=== PATIENT | female | born 1985 | race Caucasian/White ===

== ENCOUNTER → 2017-12-21 09:25 | Outpatient (CLI) | payer OTHER, SELFPAY ==
[2017-12-21 10:00] LABS: Add Manual Diff / Slide Review NO; Eosinophils Percent Auto 1.8 % (2-4); Hematocrit 41.3 % (36-46); Lymphocytes Percent Auto 32.2 % (25-40); Mean Corpuscular Hemoglobin 30.7 PG (26-34); Mean Corpuscular Volume 90.4 fL (80-100); Monocytes Percent Auto 12.8 % (3-14); Neutrophils Absolute Auto 2300 /uL (3000-5900); Neutrophils Percent Auto 52.2 % (50-75); Platelet Count 182 X10^3/uL (150-400); Red Blood Cell Count 4.57 X10^6/uL (4.0-5.2); Red Cell Distribution Width 13.5 % (11.6-14.8); White Blood Cell Count 4.4 X10^3/uL (4.5-11.0)
[2017-12-21 11:05] LABS: Alanine Aminotransferase 26 IU/L (9-52); Albumin 4.4 g/dL (3.5-5.0); Albumin Globulin Ratio 1.5 (1.0-2.8); Alkaline Phosphatase 49 U/L (38-126); Aspartate Aminotransferase 18 IU/L (14-36); Bilirubin Total 0.4 mg/dL (0.2-1.3); Calcium 9.2 mg/dL (8.4-10.2); Estimated Glomerular Filt Rate > 60.0 mL/min (>60); Globulin 2.9 g/dL (1.7-4.1); Glucose 82 mg/dL (70-100); HEMOLYSIS < 15 (0-50); Potassium 4.4 mmol/L (3.4-5.1); Sodium 141 mmol/L (137-145); Total Protein 7.3 g/dL (6.3-8.2)
[2017-12-21 11:56] LABS: HIV 1 and 2 Antibody NEGATIVE (NEGATIVE); Hep C Virus Ab w/Reflex Quant NEGATIVE s/c (NEGATIVE)
[2017-12-25 13:40] LABS: Hepatitis B Surf Ab Qualitativ Reactive (Nonreactive)
[2017-12-25 16:41] LABS: QuantiFERON TB Negative (Negative)
== END ==
PROVIDERS: Visit Provider Physician Assistant
DX: L40.0 Psoriasis vulgaris (principal)
CPT/HCPCS: 36415; 80053; 85025; 86480; 86703; 86706; 86803

== ENCOUNTER 2018-04-06 16:19 | Emergency (ER) | payer OTHER, SELFPAY ==
[2018-04-06 16:26] VITALS: BP 104/65; PULSE 62; RESP 16; TEMP 36.4; O2SAT 99; BMI 20.9
--- NOTE | 2018-04-06 16:31 | DI.RAD.S_ITS ---
PROCEDURE: XR FINGER LT MIN 2V INDICATIONS: hit left index finger with a hammer TECHNIQUE: AP hand, 2 views of the second finger(s) acquired. COMPARISON: None. FINDINGS: Bones: Small chip fracture involving volar aspect of second middle phalangeal base is seen with no significant displacement. No dislocation. No suspicious bony lesions. Soft tissues: No suspicious soft tissue calcifications. IMPRESSION: Chip fracture involving volar aspect of the second middle phalangeal base. Dictated by: López Quick M.D. on 04/06/2018 at 16:49 Approved by: López Quick M.D. on 04/06/2018 at 16:50
--- NOTE | 2018-04-06 18:30 | ED.UPPEXIN ---
HPI - Extremity Injury (Upper) <ALYSSA Rosario - Last Filed: 04/06/18 21:44> General Chief Complaint: Extremity Injury, Upper Stated Complaint: LEFT HAND INDEX FINGER INJURY Time Seen by Provider: 04/06/18 18:30 Source: patient Mode of arrival: ambulatory Limitations: no limitations History of Present Illness HPI narrative: 32-year-old female with history of rheumatoid arthritis that is a everyday smoker here for complaint of pain into her left index finger. She states that she was using a hammer earlier today and accidentally simple with a hammer hitting her left index finger. She reports increased pain with movement of the left index finger. She denies any other injuries or concerns. She also reports having slight swelling to the area. She does report that her immunizations up-to-date Related Data Home Medications Medication Instructions Recorded Confirmed iron polysac-iron heme polypep #0 07/10/16 [Duofer] Previous Rx's Medication Instructions Recorded hydrocodone-acetaminophen 1 tab PO Q4-6H PRN #6 tab 04/06/18 Allergies Allergy/AdvReac Type Severity Reaction Status Date / Time No Known Allergies Allergy Uncoded 04/06/18 16:30 Review of Systems <ALYSSA Rosario - Last Filed: 04/06/18 21:44> Constitutional Denies chills, Denies fever(s), Denies lethargy and Denies weakness Eyes Denies change in vision, Denies eye discharge, Denies irritation and Denies loss of vision ENT Ears, Nose, Mouth, and Throat: Denies change in voice, Denies neck pain and Denies sore throat Cardiovascular Denies chest pain, Denies irregular heart rhythm, Denies lightheadedness, Denies palpitations, Denies dyspnea, Denies dyspnea on exertion and Denies orthopnea Respiratory Denies cough, Denies dyspnea, Denies dyspnea on exertion and Denies wheezing Gastrointestinal Gastrointestinal: Denies abdominal pain, Denies change in bowel habits, Denies diarrhea, Denies nausea and Denies vomiting Genitourinary Denies hematuria, Denies flank pain, Denies urinary incontinence and Denies urinary urgency Musculoskeletal Denies neck pain Comments: Pain to left index finger Neurologic Denies loss of vision and Denies weakness Endocrine Denies palpitations Allergic/Immunologic Denies wheezing Exam <ALYSSA Rosario - Last Filed: 04/06/18 21:44> Initial Vital Signs Initial Vital Signs: Vital Signs Temperature 97.6 F 04/06/18 16:26 Pulse Rate 62 04/06/18 16:26 Respiratory Rate 16 04/06/18 16:26 Blood Pressure 104/65 04/06/18 16:26 Pulse Oximetry 99 04/06/18 16:26 Const General: cooperative and well developed Nutritional Appearance: well nourished Orientation: alert, awake, oriented x3 and not confused HENMT Face and sinus: sinus tenderness Mouth: oral mucosae normal and moist mucous membranes Eyes Conjunctivae: conjunctivae normal Sclera: sclerae normal Pupils: PERRL EOM: EOM intact bilaterally Resp Effort & Inspection: normal respiratory effort, able to speak in complete sentences, no respiratory distress and no use of accessory muscles Auscultation: clear to auscultation bilaterally, no rales, no rhonchi and no wheezes Cardio Rate: regular rate Rhythm: regular rhythm Heart Sounds: no click, no gallops, no murmurs and no rubs Pulses: normal peripheral pulses Neuro General: alert, oriented x3, gait normal and no focal motor deficits Speech: speech normal Extrem Other: Left index finger with slight swelling and ecchymosis to the PIP area. Distal sensation is intact. Distal range of motion is intact. Distal cap refill less than 2 sec. No open lesions <Douglas Floyd MD - Last Filed: 04/06/18 22:21> Initial Vital Signs Initial Vital Signs: Vital Signs Temperature 97.6 F 04/06/18 16:26 Pulse Rate 62 04/06/18 16:26 Respiratory Rate 16 04/06/18 16:26 Blood Pressure 104/65 04/06/18 16:26 Pulse Oximetry 99 04/06/18 16:26 Course <ALYSSA Rosario - Last Filed: 04/06/18 21:44> Orders Ordered: ED Orders 04/06/18 16:31 XR finger LT min 2V Stat Discontinued Medications Hydrocodone Bitart/Acetaminophen (Vicodin Prepack) 1 bottle MISC SEEINSTR ONE Stop: 04/06/18 18:49 Last Admin: 04/06/18 19:06 Dose: 1 bottle Vital Signs - 8 hr 04/06/18 16:26 Temperature 97.6 F Pulse Rate 62 Respiratory Rate 16 Blood Pressure 104/65 Pulse Oximetry 99 <Douglas Floyd MD - Last Filed: 04/06/18 22:21> Orders Ordered: ED Orders 04/06/18 16:31 XR finger LT min 2V Stat Discontinued Medications Hydrocodone Bitart/Acetaminophen (Vicodin Prepack) 1 bottle MISC SEEINSTR ONE Stop: 04/06/18 18:49 Last Admin: 04/06/18 19:06 Dose: 1 bottle Vital Signs - 8 hr 04/06/18 16:26 Temperature 97.6 F Pulse Rate 62 Respiratory Rate 16 Blood Pressure 104/65 Pulse Oximetry 99 [facility] - Extremity Injury (Upper) <ALYSSA Rosario - Last Filed: 04/06/18 21:44> Imaging Data Left finger : Radiologist's impression: Patient: Saundra Sena MR#: [id number] : 1985 Acct:[id number] Age/Sex: 32 / F Date of Service: 04/06/18 Loc: ED Accession Number: [id number] Procedure: XR finger LT min 2V Ordering Provider: Mau Up PROCEDURE: XR FINGER LT MIN 2V INDICATIONS: hit left index finger with a hammer TECHNIQUE: AP hand, 2 views of the second finger(s) acquired. COMPARISON: None. FINDINGS: Bones: Small chip fracture involving volar aspect of second middle phalangeal base is seen with no significant displacement. No dislocation. No suspicious bony lesions. Soft tissues: No suspicious soft tissue calcifications. IMPRESSION: Chip fracture involving volar aspect of the second middle phalangeal base. Dictated by: López Quick M.D. on 04/06/2018 at 16:49 Approved by: López Quick M.D. on 04/06/2018 at 16:50 [facility] Narrative Medical decision making narrative: X-ray of the left index finger was obtained and shows a small chip fracture to the base of the 2nd phalanx. She is placed in a adair tape splint. Dabr-bor-ggxavka ibuprofen as needed for any discomfort. Small amount of Patterson is prescribed for breakthrough pain. Ice and elevation help with any swelling. Rest finger. Follow up with primary care provider in 1 week. For any worsening symptoms return to the emergency room. Discharge Plan Departure Patient Disposition: Home Clinical Impression: Fracture of phalanx of left index finger Discharge Date/Time: 04/06/18 19:15 Interventions: ED Discharge Assessment Last Done: 04/06/18 19:14 Instructions: DI for Finger Fracture Activity Restrictions/Additional Instructions: X-ray of the left index finger was obtained and shows a small chip fracture to the base of the 2nd phalanx. You have been placed in a adair tape splint. Adair-tape finger daily until pain-free. Cots-aoz-dtgdukt ibuprofen as needed for any discomfort. Small amount of Patterson is prescribed for breakthrough pain no driving while on the Patterson. Ice and elevation help with any swelling. Rest finger. Follow up with primary care provider in 1 week. For any worsening symptoms return to the emergency room. Prescriptions: New hydrocodone-acetaminophen 5-325 mg tablet 1 tab PO Q4-6H PRN (Reason: pain) Qty: 6 RF: 0 No Action iron polysac-iron heme polypep [Duofer] 28 mg Tablet Qty: 0 RF: 0 Referrals: Preeti Mejia PA-C [Primary Care Provider] - <Douglas Floyd MD - Last Filed: 04/06/18 22:21> Cosign ED Attending Cosignature Attestation: I was present in the ER at the time of this patient's evaluation. I was available for verbal consultation or to see the patient directly if need be. I agree with the assessment and treatment plan.
[2018-04-06] MEDS: HYDROCODONE/ACET 5/325 PREPACK 1 BOTTLE MISC (19:06)
== END 2018-04-06 19:15 | disposition home or self-care (01) ==
PROVIDERS: Emergency Provider Nurse Practitioner Family; Family Provider Physician Assistant Medical; PCP Physician Assistant Medical
DX: S62.601A Fracture of unspecified phalanx of left index finger, initial encounter for closed fracture (principal); W27.8XXA Contact with other nonpowered hand tool, initial encounter
CPT/HCPCS: 29130; 73140; 99282; 99283

== ENCOUNTER → 2019-11-02 15:20 | Outpatient (CLI) | payer OTHER, SELFPAY ==
[2019-11-03 11:22] LABS: Influenza A - CEPHEID Flu A NEGATIVE (NEGATIVE); Influenza B - CEPHEID Flu B NEGATIVE (NEGATIVE)
[2019-11-05 01:10] LABS: COVID19 Sendout Not Detected (Not Detected)
== END ==
PROVIDERS: Family Provider Physician Assistant Medical; PCP Physician Assistant Medical; Visit Provider Physician Assistant
DX: J02.9 Acute pharyngitis, unspecified (principal); R68.89 Other general symptoms and signs; R05 Cough; R50.9 Fever, unspecified
CPT/HCPCS: 87070; 87502; 87635

== ENCOUNTER 2020-04-12 08:10 | Emergency (ER) | payer OTHER, SELFPAY ==
[2020-04-12 08:22] VITALS: BP 116/73; PULSE 78; RESP 16; TEMP 36.5; O2SAT 100; BMI 21.6
--- NOTE | 2020-04-12 08:36 | ED.SKABFB ---
HPI - Skin/Abscess/Foreign Bdy General Chief complaint: Skin/Abscess/Foreign Body Stated complaint: PAINFUL CYST AT TOP OF BUTT Time Seen by Provider: 04/12/20 08:23 Source: patient Mode of arrival: Ambulatory Limitations: no limitations History of Present Illness HPI narrative: The patient has experienced a cystic structure present on her sacral area for months. The cyst has seemed to increase and decrease in size. Over the last 2 days the cyst has involved once again, and not going down this time. She has tenderness. She has no drainage from the site. She has no fever chills. She has no prior history of assessment to the areas. She has had no trauma. She has no chronic skin problems. Related Data Previous Rx's Medication Instructions Recorded hydrocodone-acetaminophen [Hosmer] 1 tab PO Q4-6H PRN #14 tab 04/12/20 Allergies Allergy/AdvReac Type Severity Reaction Status Date / Time No Known Allergies Allergy Uncoded 04/12/20 08:29 Review of Systems Constitutional Constitutional: Denies body ache(s), Denies chills and Denies fever(s) Gastrointestinal Gastrointestinal: Denies abdominal pain, Denies change in bowel habits, Denies diarrhea, Denies nausea and Denies vomiting Genitourinary Genitourinary: Denies dysuria Genitourinary: Denies dysuria Musculoskeletal Comments: Pain at the sacrum as noted above. Patient History Medical History (Updated 04/12/20 @ 17:03 by Douglas Floyd MD) Rheumatoid arthritis (Chronic 04/11/16) Surgical History History of third molar tooth extraction History of tonsillectomy Status post exploratory laparotomy Status post laparoscopic supracervical hysterectomy (07/10/16) Status post myringotomy with insertion of tube Social History Smoking Status: Current every day smoker Smoking Status: Current every day smoker tobacco type: cigarettes alcohol intake frequency: a few times a week Substance Use Type: does not use Exam Initial Vital Signs Initial Vital Signs: Vital Signs Temperature 97.7 F 04/12/20 08:22 Pulse Rate 78 04/12/20 08:22 Respiratory Rate 16 04/12/20 08:22 Blood Pressure 116/73 04/12/20 08:22 Pulse Oximetry 100 04/12/20 08:22 Back/Spine/Pelvis Other: Normal. Skin Other: Pilonidal abscess over her sacrum. There is about a 2 cm area of erythema, and induration. There is a 1 cm central area of fluctuance. There is no obvious tractor drainage from the site. Neuro General: patient alert, patient oriented x3, gait normal and no focal motor deficits Speech: speech normal Psych Appearance: well kempt Mental Status: mental status grossly normal Attitude: cooperative Thought Content: normal Procedures Abscess I/D I&D #1: Site: other (Sacrum) Local Anesthetic: lidocaine 1% and with bicarb Amount of anesthesia used (mL): 3 Technique: incised with #11 blade Amount of fluid expressed (mL): 2 Irrigation: Yes Packing used?: iodoform Complications: pain Course Course Course Narrative: Panel abscess was I and eat. Package was placed. 4x4s were paced for her 2 pack inside her pants. Although she experience pain with the and incision, she tolerated procedure quite well. There are no additional complications. She was prescribed Hosmer for pain. She is asked to follow-up with her doctor in 2 days to recheck the wound. She is asked to follow up with surgery, either here or through consultation from her PCM. Orders Ordered: Discontinued Medications Lidocaine/Sodium Bicarbonate (Buffered Lidocaine 10 Ml Syr) 5 ml INJ NOW ONE Stop: 04/12/20 09:16 Last Admin: 04/12/20 09:03 Dose: 5 ml Documented by: AMARIS Vital Signs Vital signs: Vital Signs - 8 hr 04/12/20 09:51 Pulse Rate 78 Respiratory Rate 14 Blood Pressure 121/82 Pulse Oximetry 99 Discharge Plan Departure Patient Disposition: Home Clinical Impression: Cyst, pilonidal, with abscess Discharge Date/Time: 04/12/20 09:52 Instructions: Pilonidal Cyst Activity Restrictions/Additional Instructions: Apply warm soaks or do Sitz baths 2-3 times daily until you feel the wound is healing well. Change bandages as needed. Follow-up with your doctor in about 2 days for wound check. I would recommend follow-up with surgery for recheck in about 2 weeks. I will give you contact information for Dr. Brewer, a local surgeon here in [place]. Take Tylenol or Advil as needed for pain. Hosmer every 4 hours as needed for added pain control. Return the ER if symptoms escalate. Prescriptions: New hydrocodone-acetaminophen [Hosmer] 5-325 mg tablet 1 tab PO Q4-6H PRN (Reason: pain) Qty: 14 RF: 0 Referrals: Cuate Brewer MD [Physician] - Douglas Floyd MD [Emergency Provider] - Bonny Chew PA-C [Primary Care Provider] -
[2020-04-12] MEDS: LIDO 1%/SOD BICARB 8.4% (10ML) 10 ML SYRINGE 5 ML INJ (09:03)
[2020-04-12 09:51] VITALS: BP 121/82; PULSE 78; RESP 14; O2SAT 99
== END 2020-04-12 09:52 | disposition home or self-care (01) ==
PROVIDERS: Emergency Provider Emergency Medicine; Family Provider Physician Assistant Medical; PCP Physician Assistant Medical
DX: L05.01 Pilonidal cyst with abscess (principal)
CPT/HCPCS: 10060; 99283

== ENCOUNTER → 2020-11-03 16:07 | Outpatient (CLI) | payer OTHER, SELFPAY ==
--- NOTE | 2020-11-03 | DI.MRI.S_ITS ---
PROCEDURE: MR ANKLE RT WO CON INDICATIONS: pain in right foot TECHNIQUE: Noncontrast sagittal T1 spin echo and T2 fast spin echo with fat saturation, axial proton density fast spin echo and T2 fast spin echo with fat saturation, coronal T1 spin echo and T2 fast spin echo with fat saturation through the ankle/hindfoot. COMPARISON: None. FINDINGS: Image quality: Excellent. Bones and joints: There is mild marrow edema involving medial periphery of medial malleolus and lateral periphery of lateral malleolus without discrete fracture line. No hindfoot coalitions. No osteochondral injuries of the talar dome. No pathologic joint effusions. Medial structures: The posterior tibialis, flexor digitorum longus, and flexor hallucis longus tendons are intact. Small amount of fluid distending posterior tibialis tendon sheath is seen suggestive of low-grade tenosynovitis at the level of anterior talus. The posterior tibial neurovascular bundle appears normal within the tarsal tunnel, without extrinsic mass effect. The deep layer (anterior and posterior tibiotalar ligaments) and superficial layer (tibionavicular, tibiospring, and tibiocalcaneal ligaments) of the deltoid ligament appear normal. The spring ligament components (superomedial calcaneonavicular, medioplantar oblique calcaneonavicular, and inferoplantar longitudinal ligaments) are intact. Lateral structures: The anterior talofibular ligament is intact. Posterior talofibular ligament and calcaneofibular ligament are slightly thickened with heterogeneous intrasubstance T2 hyperintense signal suggestive of low-grade ligament sprain/partial-thickness tear. More superiorly, the anterior and posterior tibiofibular ligaments appear intact, as is the intermalleolar ligament. The tibiofibular syndesmosis is normal in width at 2 mm or less. The peroneus longus and brevis tendons are also thickened with intrasubstance T2 hyperintense signal at the level of lateral calcaneus. Adjacent bony peroneal tubercle and retrotrochlear prominence are normal in size. The sinus tarsi demonstrates normal fatty signal, without edema, fibrosis, or cyst formation. Visualized sinus tarsi components (cervical ligament, interosseous talocalcaneal ligament, roots of the inferior extensor retinaculum) appear normal. The calcaneonavicular and calcaneocuboid components of the bifurcate ligament appear intact. The dorsal calcaneocuboid ligament appears intact. Anterior structures: The tibialis anterior, extensor hallucis longus, and extensor digitorum longus tendons appear intact. The dorsal talonavicular ligament appears intact. Posterior and plantar structures: Achilles tendon is intact. Medial and lateral bands of the plantar fascia are of normal thickness. No abductor digiti quinti muscle atrophy to suggest Jaquez neuropathy. IMPRESSION: 1. Suggestion of mild bony contusion involving medial and lateral malleoli with mild amount of marrow edema. No discrete fracture line. No significant joint effusion. No osteochondral lesion of talar dome. 2. Suggestion of low-grade tenosynovitis involving posterior tibialis tendon. 3. Tendinosis and low-grade intrasubstance partial-thickness tear involving peroneus tendons at the level of lateral calcaneus. 4. Low-grade sprain/partial-thickness tear involving posterior talofibular ligament and calcaneofibular ligament. Dictated by: López Quick M.D. on 11/03/2020 at 16:49 Approved by: López Quick M.D. on 11/03/2020 at 17:16
== END ==
PROVIDERS: Family Provider Physician Assistant Medical; PCP Physician Assistant Medical; Referring Provider Podiatrist; Visit Provider Podiatrist
DX: R22.9 Localized swelling, mass and lump, unspecified (principal); R26.2 Difficulty in walking, not elsewhere classified; M79.671 Pain in right foot
CPT/HCPCS: 73721

== ENCOUNTER → 2020-11-26 06:38 | Outpatient (CLI) | payer OTHER, SELFPAY ==
--- NOTE | 2020-11-26 | DI.MRI.S_ITS ---
PROCEDURE: MR LUMBAR SPINE WO/W CON INDICATIONS: Intervertebral disc disorders with radiculopathy, TECHNIQUE: Noncontrast sagittal T1 spin echo and T2 fast spin echo, sagittal STIR, axial T1 and T2 fast spin echo through the lumbar spine. In cases with scoliosis, additional coronal T2 fast spin echo may be performed. After the administration of contrast, sagittal and axial T1 spin echo with fat saturation through the lumbar spine. COMPARISON: CR, L-SPINE 2-3 VIEWS, 07/01/2013, 19:53. FINDINGS: Image quality: Excellent. Alignment and curvature: There is normal bony alignment. Bones: Postsurgical changes compatible with prior L5-S1 bilateral laminotomies. Marrow is of normal overall signal. No acute vertebral body compression fractures. No suspicious marrow enhancement. Spinal cord: Conus medullaris terminates at the L1 level. Visualized spinal cord demonstrates normal signal, without suspicious enhancement. Paraspinous soft tissues: No paravertebral masses or abnormal enhancement. T12-L1: Normal appearance. L1-L2: Normal appearance. L2-L3: Normal appearance. L3-L4: Normal appearance. L4-L5: Slight loss of disc signal. Minimal, diffuse disc bulge. No central stenosis. No neural foraminal narrowing. No neural compression. L5-S1: Loss of disc signal. Mild, diffuse disc bulge. Moderate-sized central disc protrusion. Mild narrowing of the central canal. Moderate bilateral neural foraminal narrowing. No neural compression. IMPRESSION: 1. Postsurgical change compatible with prior L5-S1 bilateral laminotomy. 2. L4-L5 and L5-S1 degenerative disc disease. 3. Mild L5-S1 central canal narrowing. 4. Moderate bilateral L4-L5 neural foraminal narrowing. 5. No neural compression. 6. No suspicious postcontrast enhancement. Dictated by: Radha Pratt MD, PhD on 11/26/2020 at 8:20 Approved by: Radha Pratt MD, PhD on 11/26/2020 at 8:24
== END ==
PROVIDERS: Family Provider Physician Assistant Medical; PCP Physician Assistant Medical; Referring Provider Orthopaedic Surgery; Visit Provider Orthopaedic Surgery
DX: M51.16 Intervertebral disc disorders with radiculopathy, lumbar region (principal); M51.17 Intervertebral disc disorders with radiculopathy, lumbosacral region; M48.061 Spinal stenosis, lumbar region without neurogenic claudication; M48.07 Spinal stenosis, lumbosacral region
CPT/HCPCS: 72158

== ENCOUNTER 2021-01-11 09:50 | Emergency (ER) | payer OTHER, SELFPAY ==
[2021-01-11] VITALS (11 sets, daily range): BP systolic 103–128; BP diastolic 58–74; PULSE 65–90; RESP 18; TEMP 36.6; O2SAT 98–100; BMI 19.3
--- NOTE | 2021-01-11 11:08 | ED_ITS ---
HPI - Back Pain/Injury General Chief Complaint: Back Pain/Injury Stated Complaint: RUPTURED DISC IN BACK Time Seen by Provider: 01/11/21 11:01 Source: patient Limitations: no limitations History of Present Illness HPI Narrative: This is a 35-year-old female who comes in with known herniated disc at the L4-L5 region. MRI in October which I was able to review here in the department. She has had a prior L5-S1 bilateral laminotomy and hysterectomy. Patient states she follows with [facility]. She is scheduled for back injections in the next week but states her symptoms have just been worsening. Her main goal here today is symptom management. Patient states her symptoms are consistent with her prior flares. She states she did have a flare couple weeks ago had pain medication and steroids which seemed to be quite helpful. And that she finished her steroids about 2-3 weeks ago. Patient was feeling significantly better and states she has been more active. She did not know any significant activity that seemed to suddenly worsen her symptoms but she has noted a slight increase in discomfort over the last several days. Patient states pain does radiate down both legs. She gets numbness and tingling down her legs. She denies any weakness but does have significant worsening of pain with movement of her lower extremities particularly extension. Patient denies any fevers or chills. No chest pain or shortness of breath. No loss of bowel or bladder control. Known new GI or urinary symptoms. No nausea or vomiting. She is on medications for rheumatoid arthritis, mood and ultram daily for chronic pain. Patient denies any allergies to medications. 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 Related Data Previous Rx's Medication Instructions Recorded hydrocodone-acetaminophen [[facility]] 1 tab PO Q4-6H PRN #14 tab 04/12/20 cyclobenzaprine 10 mg PO TID PRN #20 tab 01/11/21 oxycodone-acetaminophen [Percocet] 1 tab PO Q6H PRN #5 tab 01/11/21 prednisone 40 mg PO DAILY #8 tab 01/11/21 Allergies Allergy/AdvReac Type Severity Reaction Status Date / Time No Known Allergies Allergy Uncoded 04/12/20 08:29 Review of Systems Review of Systems ROS Unobtainable: All systems reviewed & are unremarkable except as noted in HPI and below Patient History Medical History (Updated 01/11/21 @ 11:30 by Emili Sheffield DO) Rheumatoid arthritis (04/11/16) Surgical History History of third molar tooth extraction History of tonsillectomy Status post exploratory laparotomy Status post laparoscopic supracervical hysterectomy (07/10/16) Status post myringotomy with insertion of tube Social History Smoking Status: Current every day smoker Smoking Status: Current every day smoker tobacco type: cigarettes alcohol intake frequency: a few times a week Substance Use Type: does not use Exam Narrative Exam Narrative: GENERAL: Alert and oriented x three, well-nourished female in moderate distress. HEENT: Head normocephalic, atraumatic, EOMI, pupils reactive, face symmetric, moist mucous membranes NECK: Supple, full range of motion CARDIOVASCULAR: Regular rate and rhythm without murmurs, rubs or gallops. RESPIRATORY: Breath sounds equal bilaterally, no wheezes rales or rhonchi. ABDOMEN: Soft, nontender. Normoactive bowel sounds all 4 quadrants. No guarding or rebound, rigidity, no mass : No CVA tenderness BACK: No cervical, thoracic or lumbar vertebral point tenderness. Patient has decreased range of motion. Patient's gait is [antalgic/normal]. Rectal exam is deferred. No saddle anesthesia. Muscle strength is 5/5 in lower extr emities, Sensation is intact in the lower extremities, ca; refill less than 2 seconds bilaterally. EXTREMITIES: Normal range of motion, no clubbing or edema. Neurovascularly intact NEUROLOGICAL: Cranial nerves II through XII grossly intact. Moving all extremities SKIN: Warm, dry, no petechiae, no rashes or lesions. Initial Vital Signs Initial Vital Signs: Vital Signs Temperature 97.8 F 01/11/21 10:00 Pulse Rate 90 01/11/21 10:00 Respiratory Rate 18 01/11/21 10:00 Blood Pressure 128/74 01/11/21 10:00 Pulse Oximetry 100 01/11/21 10:00 Course Orders Ordered: Discontinued Medications Ketorolac Tromethamine (Ketorolac 30 Mg/Ml Vial) 60 mg IM NOW ONE Stop: 01/11/21 11:20 Last Admin: 01/11/21 11:51 Dose: 60 mg Documented by: ROMEL Oxycodone/Acetaminophen (Oxycodone/Acetaminophen 5/325 Tablet) 1 tab PO NOW ONE Stop: 01/11/21 12:27 Last Admin: 01/11/21 12:31 Dose: 1 tab Documented by: ROMEL Prednisone (Prednisone 20 Mg Tablet) 60 mg PO NOW ONE Stop: 01/11/21 11:20 Last Admin: 01/11/21 11:29 Dose: 60 mg Documented by: ROMEL Reevaluation(s) Reevaluation #1: Patient is feeling much more comfortable on recheck pending her 1 Percocet p.o. here as she is waiting for her ride. She states she has a few tablets left of narcotic pain medication and would like to refill the prednisone. Time: 12:32 Vital Signs Vital signs: Vital Signs - 8 hr 01/11/21 11:00 01/11/21 11:01 01/11/21 11:30 Pulse Rate 83 88 74 Blood Pressure 122/74 Pulse Oximetry 99 99 98 01/11/21 11:31 01/11/21 12:00 01/11/21 12:30 Pulse Rate 74 75 69 Blood Pressure 103/67 108/72 Pulse Oximetry 98 98 98 01/11/21 12:32 01/11/21 13:00 Pulse Rate 76 65 Blood Pressure 107/58 L 110/69 Pulse Oximetry 100 100 MDM - Back Pain/Injury Imaging Data 10/2020 MRI: Radiologist's Impression: [address] [id number] Resonance ReportSigned Patient: Saundra Sena [facility]#: [id number]: 1985Acct:[id number]/Sex: 35 / FDate of Service: 11/26/20Loc: MRIAccession Number: [id number] Procedure: MR lumbar spine wo/w con Ordering Provider: Qasim Alexander MD PROCEDURE: MR LUMBAR SPINE WO/W CON INDICATIONS: Intervertebral disc disorders with radiculopathy, TECHNIQUE: Noncontrast sagittal T1 spin echo and T2 fast spin echo, sagittal STIR, axial T1 and T2 fast spin echo through the lumbar spine. In cases with scoliosis, additional coronal T2 fast spin echo may be performed. After the administration of contrast, sagittal and axial T1 spin echo with fat saturation through the lumbar spine. COMPARISON: CR, L-SPINE 2-3 VIEWS, 07/01/2013, 19:53. FINDINGS: Image quality: Excellent. Alignment and curvature: There is normal bony alignment. Bones: Postsurgical changes compatible with prior L5-S1 bilateral laminotomies. Marrow is of normal overall signal. No acute vertebral body compression fractures. No suspicious marrow enhancement. Spinal cord: Conus medullaris terminates at the L1 level. Visualized spinal cord demonstrates normal signal, without suspicious enhancement. Paraspinous soft tissues: No paravertebral masses or abnormal enhancement. T12-L1: Normal appearance. L1-L2: Normal appearance. L2-L3: Normal appearance. L3-L4: Normal appearance. L4-L5: Slight loss of disc signal. Minimal, diffuse disc bulge. No central stenosis. No neural foraminal narrowing. No neural compression. L5-S1: Loss of disc signal. Mild, diffuse disc bulge. Moderate-sized central disc protrusion. Mild narrowing of the central canal. Moderate bilateral neural foraminal narrowing. No neural compression. IMPRESSION: 1. Postsurgical change compatible with prior L5-S1 bilateral laminotomy. 2. L4-L5 and L5-S1 degenerative disc disease. 3. Mild L5-S1 central canal narrowing. 4. Moderate bilateral L4-L5 neural foraminal narrowing. 5. No neural compression. 6. No suspicious postcontrast enhancement. Dictated by: Radha Pratt MD, PhD on 11/26/2020 at 8:20 Approved by: Radha Pratt MD, PhD on 11/26/2020 at 8:24 [facility] Narrative Medical decision making narrative: Patient comes in with acute on chronic low back pain in similar pattern is the past. No acute new neurologic changes. Patient does not have any red flag symptoms today. She is set up for follow-up in the next week for injections and is post laminotomy remotely. Patient did have an MRI in October, 2 months ago which shows post surgical changes, some degenerative disc disease, mild L5-S1 central canal with moderate bilateral L4- L5 neural foraminal narrowing. There was no neural compression. Patient's main goal today is pain control until she can follow up for injections. She states steroids or typically helpful for her. Her most recent ER visit was at [facility] attempting to obtain records. Patient received Toradol and steroids here in the department with improvement. Was given 1 dose of oral Percocet in the department. [place] PWP was reviewed she had 42 oxycodone in a pool/09/18/2020 as well as 14 tablets in 11/10/2020 but did not have any other priors for until August and July which were both tramadol. Discharge Plan Departure Patient Disposition: Home Clinical Impression: Low back pain Qualifiers: Back pain laterality: bilateral Sciatica presence: with sciatica Sciatica laterality: bilateral sciatica Instructions: DI for Low Back Pain Activity Restrictions/Additional Instructions: Follow up with your spinal specialist at your appointment. I hope your injections are helpful. Take steroids until gone. You may use muscle relaxers as needed. You may take ibuprofen up to 800 mg every 8 hours as needed for pain and/or Tylenol up to a 1000 mg as needed for pain. If this is an adequate you may substitute Percocet for Tylenol. These both have acetaminophen in them so your maximum dose of acetaminophen in 24 hours is 3000 mg. This medication can make you sleepy do not drive, perform hazardous activities or make any major decisions while taking it. This medication will make you constipated please take a stool softener once to twice daily until stools are soft and regular. Prescription to [facility] in [place]. You may continue your home medications as prescribed. Please return for fevers, rapidly worsening symptoms, loss of bowel or bladder control, inability urinate, new numbness, weakness or inability to lift or move your leg, lightheadedness or passing out, new chest pain or shortness of breath or other new or concerning symptoms. Prescriptions: New cyclobenzaprine 10 mg tablet 10 mg PO TID PRN (Reason: muscle spasm) Qty: 20 RF: 0 prednisone 20 mg tablet 40 mg PO DAILY Qty: 8 RF: 0 oxycodone-acetaminophen [Percocet] 5-325 mg tablet 1 tab PO Q6H PRN (Reason: pain) Qty: 5 RF: 0 No Action hydrocodone-acetaminophen [[facility]] 5-325 mg tablet 1 tab PO Q4-6H PRN (Reason: pain) Qty: 14 RF: 0 Referrals: Bonny Chew PA-C [Primary Care Provider] -
[2021-01-11] MEDS: predniSONE 20 MG TABLET 60 MG PO (11:29)
[2021-01-11] MEDS: KETOROLAC 30 MG/ML VIAL 60 MG IM (11:51)
[2021-01-11] MEDS: OXYCODONE/ACETAMINOPHEN 5/325 TABLET 1 TAB PO (12:31)
== END 2021-01-11 13:19 | disposition home or self-care (01) ==
PROVIDERS: Emergency Provider Emergency Medicine; Family Provider Physician Assistant Medical; PCP Physician Assistant Medical
DX: M54.42 Lumbago with sciatica, left side (principal); M54.41 Lumbago with sciatica, right side
CPT/HCPCS: 96372; 99283; J1885

== ENCOUNTER 2021-06-23 02:51 | Emergency (ER) | payer OTHER, SELFPAY ==
[2021-06-23 02:50] VITALS: BP 134/95; PULSE 88; RESP 18; TEMP 36.8; O2SAT 99; BMI 17.9
[2021-06-23] MEDS: OXYCODONE/ACETAMINOPHEN 5/325 TABLET 2 TAB PO (03:19)
[2021-06-23] MEDS: diazePAM 5 MG TABLET PO (03:19)
[2021-06-23] MEDS: KETOROLAC 30 MG/ML VIAL IM (03:20)
--- NOTE | 2021-06-23 03:40 | ED.EXTPRO ---
HPI - Extremity Problem General Chief complaint: Extremity Problem,Nontraumatic Stated complaint: Rt leg pain Time Seen by Provider: 06/23/21 03:03 Source: patient and EMS Mode of arrival: Ambulatory Limitations: no limitations and language barrier History of Present Illness HPI Narrative: Patient is a 35-year-old female with history of chronic back pain and rheumatoid arthritis presenting today with a rate full leg pain. She cannot find a comfortable position. She has a known herniated disc between L5 and S1 she has had multiple procedures on that area. She had a cortisone injection about 3 weeks ago. She has had no changes in bowel or bladder habits. No fever or chills. She is currently camping with her children she thinks maybe something happened while she was packing car her. She is feels an ache in her right leg and can not find a comfortable position. She actually has no worsening back pain at this time. She takes Percocet regularly for ongoing back pain. No prior history of sciatic problems Related Data Previous Rx's Medication Instructions Recorded hydrocodone 5 mg-acetaminophen 325 1 tab PO Q4-6H PRN #14 tab 04/12/20 mg tablet ([place]) cyclobenzaprine 10 mg tablet 10 mg PO TID PRN #20 tab 01/11/21 oxycodone-acetaminophen 5 mg-325 1 tab PO Q6H PRN #5 tab 01/11/21 mg tablet (Percocet) prednisone 20 mg tablet 40 mg PO DAILY #8 tab 01/11/21 methocarbamol 750 mg tablet 750 mg PO Q8H PRN #20 tab 06/23/21 prednisone 20 mg tablet 40 mg PO DAILY #10 tab 06/23/21 Allergies Allergy/AdvReac Type Severity Reaction Status Date / Time No Known Allergies Allergy Uncoded 04/12/20 08:29 Review of Systems Review of Systems Narrative: GENERAL: Denies chills, fatigue, malaise, fever, sweats, travel HEENT: Denies sinus pain, ear pain, sore throat, difficulty swallowing, neck pain RESPIRATORY: Denies dyspnea, cough, wheezing, hemoptysis, sputum. CARDIOVASCULAR: Denies chest pain, palpitations, orthopnea, edema GASTROINTESTINAL: Denies nausea, vomiting, abdominal pain, diarrhea, constipation, melena. : Denies dysuria, frequency, incontinence, hematuria, urinary retention, flank pain. MUSCULOSKELETAL: Chronic back pain him see HPI SKIN: No rash, no erythema, no pruritus NEUROLOGIC: Denies weakness, dizziness, headache, numbness, change in speech, confusion PSYCHIATRIC: No concerning psychosocial issues. 12 point review of systems is negative except for those stated above and HPI Patient History Medical History (Updated 06/23/21 @ 03:46 by Katharina Chaparro DO) Rheumatoid arthritis (04/11/16) Surgical History History of third molar tooth extraction History of tonsillectomy Status post exploratory laparotomy Status post laparoscopic supracervical hysterectomy (07/10/16) Status post myringotomy with insertion of tube Social History Smoking Status: Current every day smoker Smoking Status: Current every day smoker tobacco type: cigarettes alcohol intake frequency: a few times a week Substance Use Type: does not use Exam Initial Vital Signs Initial Vital Signs: Vital Signs Temperature 98.2 F 06/23/21 02:50 Pulse Rate 88 06/23/21 02:50 Respiratory Rate 18 06/23/21 02:50 Blood Pressure 134/95 H 06/23/21 02:50 Pulse Oximetry 99 06/23/21 02:50 GENERAL: Alert 35-year-old female HEENT: Head atraumatic,EOMI, pupils reactive, face symmetric, moist mucous membranes CARDIOVASCULAR: Regular rate and rhythm without murmurs, rubs or gallops. RESPIRATORY: Breath sounds equal bilaterally, no wheezes rales or rhonchi. BACK: No vertebral tenderness EXTREMITIES: Normal range of motion, no clubbing or edema. Neurovascularly intact. Continuously moving right leg to try and find comfortable position. Pain is reproduced by palpating in the right buttock region. NEUROLOGICAL: Alert and oriented x4. SKIN: Warm, dry, no laceration, no petechiae, no rashes or lesions. Course Orders Ordered: Hydromorphone HCl (Hydromorphone 2 Mg Inj) 1 mg SUBCUT Q4H PRN PRN Reason: Pain, Severe (7-10) Last Admin: 06/23/21 04:02 Dose: 1 mg Documented by: GERALDINE Discontinued Medications Diazepam (Diazepam 5 Mg Tablet) 5 mg PO NOW ONE Stop: 06/23/21 03:13 Last Admin: 06/23/21 03:19 Dose: 5 mg Documented by: GERALDINE Ketorolac Tromethamine (Ketorolac 30 Mg/Ml Vial) 30 mg IM NOW ONE Stop: 06/23/21 03:13 Last Admin: 06/23/21 03:20 Dose: 30 mg Documented by: GERALDINE Oxycodone/Acetaminophen (Oxycodone/Acetaminophen 5/325 Tablet) 2 tab PO NOW ONE Stop: 06/23/21 03:13 Last Admin: 06/23/21 03:19 Dose: 2 tab Documented by: GERALDINE Prednisone (Prednisone 20 Mg Tablet) 40 mg PO NOW ONE Stop: 06/23/21 04:34 Last Admin: 06/23/21 04:39 Dose: 40 mg Documented by: JAVY Vital Signs Vital signs: Vital Signs - 8 hr 06/23/21 02:50 Temperature 98.2 F Pulse Rate 88 Respiratory Rate 18 Blood Pressure 134/95 H Pulse Oximetry 99 MDM - Extremity (Nontraumatic) MDM Narrative Medical decision making narrative: Patient is moving legs all around. Difficult to find comfortable position. Chronic opiate user she is given Percocet and dilaudid in the emergency department. She is given her 1st dose of prednisone as well. Pain has come down significantly but not completely gone yet. She has is no signs of cord compression, or other red flag signs. She has chronic ongoing back pain this is probably related. He is also having loss of stress at home going through separation with 2 small children. Discharge Plan Departure Patient Disposition: Home Clinical Impression: Acute back pain with sciatica Activity Restrictions/Additional Instructions: *You have been diagnosed with sciatic pain *What to do: Sciatic pain is this may be related to your no ongoing back issues. Recommend stretching and heating pad. *Continue to take medications as directed Continue Percocet as previously prescribed Methocarbamol 1500 mg every 8 hours if needed for muscle spasm Prednisone 40 mg once a day for 5 days *Follow up with your primary care provider in 2-3 days *Return to ER if you should have loss of urine or bowel, increasing pain, increasing right leg weakness, fever or any new, worsening or concerning symptoms Prescriptions: New prednisone 20 mg tablet 40 mg PO DAILY Qty: 10 0RF methocarbamol 750 mg tablet 750 mg PO Q8H PRN (Reason: muscle spasm) Qty: 20 0RF No Action cyclobenzaprine 10 mg tablet 10 mg PO TID PRN (Reason: muscle spasm) Qty: 20 0RF prednisone 20 mg tablet 40 mg PO DAILY Qty: 8 0RF oxycodone-acetaminophen [Percocet] 5-325 mg tablet 1 tab PO Q6H PRN (Reason: pain) Qty: 5 0RF hydrocodone-acetaminophen [[place]] 5-325 mg tablet 1 tab PO Q4-6H PRN (Reason: pain) Qty: 14 0RF Referrals: Bonny Chew PA-C [Primary Care Provider] -
[2021-06-23] MEDS: HYDROMORPHONE 2 MG INJ 1 MG SUBCUT (04:02)
[2021-06-23] MEDS: predniSONE 20 MG TABLET 40 MG PO (04:39)
[2021-06-23 04:45] VITALS: BP 148/83; PULSE 82; RESP 18; O2SAT 97
== END 2021-06-23 04:48 | disposition home or self-care (01) ==
PROVIDERS: Emergency Provider Emergency Medicine; Family Provider Physician Assistant Medical; PCP Physician Assistant Medical
DX: M54.9 Dorsalgia, unspecified (principal); M54.31 Sciatica, right side; G89.29 Other chronic pain; F17.210 Nicotine dependence, cigarettes, uncomplicated; Z79.891 Long term (current) use of opiate analgesic
CPT/HCPCS: 96372; 99283; 99284; J1170; J1885

== ENCOUNTER 2022-05-23 23:17 | Emergency (ER) | payer OTHER, SELFPAY ==
[2022-05-23 23:30] VITALS: BP 119/68; PULSE 103; RESP 18; TEMP 36.2; O2SAT 98; BMI 19.3
--- NOTE | 2022-05-23 23:45 | ED.SKABFB ---
HPI - Skin/Abscess/Foreign Bdy General Chief complaint: Wound/Laceration Stated complaint: had a lift down surgery site torn open Time Seen by Provider: 05/23/22 23:29 History of Present Illness HPI narrative: Patient here for evaluation of postop wound dehiscence. Patient had bilateral breast lift with implants April 17, 2022 in [place]. She did have follow-up appointment with the same surgeon while she was there. Two weeks postop she was able to ?snip ?sutures that she was instructed to do. They are subcutaneous absorbable stitches she states. Shortly after doing that she started having dehiscence/skin ulcerations on the right breast at the 6 o'clock position on the breast and then at the 4 o'clock position at the areolar border. On the left breast at the 6 o'clock position also ulceration that is size of a quarter/coin. At the 10 o'clock position at the areola border there is small ulceration as well. She did see urgent Care as well as [facility]. Since then. She was started on Augmentin 2 days ago. She did have a surgeon see her at that hospital and recommended antibiotics topical antibiotics as well as follow up in the General surgery Clinic. Related Data Previous Rx's Medication Instructions Recorded hydrocodone 5 mg-acetaminophen 325 1 tab PO Q4-6H PRN pain #14 tabs 04/12/20 mg tablet (Ragland) cyclobenzaprine 10 mg tablet 10 mg PO TID PRN muscle spasm #20 01/11/21 tabs oxycodone-acetaminophen 5 mg-325 1 tab PO Q6H PRN pain #5 tabs 01/11/21 mg tablet (Percocet) prednisone 20 mg tablet 40 mg PO DAILY #8 tabs 01/11/21 methocarbamol 750 mg tablet 750 mg PO Q8H PRN muscle spasm #20 06/23/21 tabs prednisone 20 mg tablet 40 mg PO DAILY #10 tabs 06/23/21 doxycycline monohydrate 100 mg 100 mg PO BID #20 caps 05/24/22 capsule Allergies Allergy/AdvReac Type Severity Reaction Status Date / Time No Known Allergies Allergy Uncoded 04/12/20 08:29 Review of Systems Review of Systems Narrative: GENERAL: Denies chills, fatigue, malaise, fever, sweats. HEENT: Denies sinus pain, ear pain, sore throat RESPIRATORY: Denies dyspnea, cough CARDIOVASCULAR: Denies chest pain, palpitations GASTROINTESTINAL: Denies nausea, vomiting, abdominal pain : Denies dysuria, frequency, hematuria MUSCULOSKELETAL: denies muscle or bony pain SKIN: Positive for skin wound/dehiscence NEUROLOGIC: Denies weakness, numbness ROS Unobtainable: All systems reviewed & are unremarkable except as noted in HPI and below Patient History Medical History (Updated 05/24/22 @ 00:44 by Nahid Ken MD) Rheumatoid arthritis (04/11/16) Surgical History History of third molar tooth extraction History of tonsillectomy Status post exploratory laparotomy Status post laparoscopic supracervical hysterectomy (07/10/16) Status post myringotomy with insertion of tube Social History Smoking Status: Current every day smoker Smoking Status: Current every day smoker tobacco type: cigarettes alcohol intake frequency: a few times a week Substance Use Type: does not use Exam Narrative Exam Narrative: GENERAL: in no distress, not toxic not dyspneic, female side laster staple at bedside, nurse Black HEAD: Normocephalic. NEURO: AOx4. SKIN: Warm and dry, examination right breast there is a dime-sized ulceration at the 6 o'clock position at the incision, no fat exposure seen. It is superficial. At the 4 o'clock position on the areola small ulceration as well. No fat exposure seen. No palpable abscesses on these areas or the remaining breast. Examination of the left breast at the 6 o'clock position there is a quarter-size/coin size ulceration that is also superficial, no fat exposure seen. At the 10 o'clock position at the areola border there is a small ulceration as well. No fat exposure seen. Again on the left breast no palpable abscess. No red streaking on either breast. PSYCH: Not anxious, is cooperative Initial Vital Signs Initial Vital Signs: Vital Signs Temperature 97.1 F L 05/23/22 23:30 Pulse Rate 103 H 05/23/22 23:30 Respiratory Rate 18 05/23/22 23:30 Blood Pressure 119/68 05/23/22 23:30 Pulse Oximetry 98 05/23/22 23:30 Oxygen Delivery Method 05/23/22 23:30 Course Course Course Narrative: No new issues during course of stay Orders Ordered: ED Orders 05/23/22 23:51 US breast LT limited Stat US breast RT limited Stat Discontinued Medications Bacitracin (Bacitracin Oint 0.9 Gm Pckt) 4 applic TOP NOW ONE Stop: 05/24/22 00:48 Last Admin: 05/24/22 00:56 Dose: 4 applic Documented By: DORYS Doxycycline Hyclate (Doxycycline Hyclate 100 Mg Tablet) 100 mg PO NOW ONE Stop: 05/23/22 23:42 Last Admin: 05/24/22 00:03 Dose: 100 mg Documented By: DORYS Reevaluation(s) Reevaluation #1: Reviewed my discussion with patient with Dr. Mahoney, she agrees for follow-up with him. Also, she valentin want to wait for final results of the ultrasound today. At this time preliminary no fluid collection. She states the walk-in clinic she saw earlier essentially is like primary care and supposed to give referral to surgeon at other hospital location, she has [employer] insurance. She did call [facility] today and still waiting for referral Time: 00:42 Consultations Consultation #1: Spoke with general surgeon, Dr. Mahoney, he will see patient in the office. He will call his staff in the morning to make appointment for patient. Agrees with doxycycline and ultrasound Time: 23:51 Vital Signs Vital signs: Vital Signs - 8 hr 05/23/22 23:30 Temperature 97.1 F L Pulse Rate 103 H Respiratory Rate 18 Blood Pressure 119/68 Pulse Oximetry 98 Oxygen Delivery Method Room Air MDM - Skin/Abscess/Foreign Bdy Differential Diagnosis Differential diagnosis: Likely abscess of skin or subcutaneous tissue, cellulitis and other (Dehiscence) Imaging Data Ultrasound bilateral breasts: Radiologist's Impression: [address] [address] Ultrasound Report Signed Patient: Saundra Sena MR#: [id number] : 1985 Acct:[id number] Age/Sex: 36 / F Date of Service: 05/23/22 Loc: ED Accession Number: [id number] ?? Procedure: US breast RT limited Ordering Provider: Nahid Ken MD PROCEDURE: US BREAST RT LIMITED ? COMPARISON: None. ? INDICATIONS: Pain and swelling ? FINDINGS: ? Ultrasound evaluation of the right breast in the areas of clinical concern at the 5:00? retroareolar region and 6:00 region demonstrate no discrete cystic or solid mass. ? IMPRESSION: ? 1.? No discrete mass demonstrated in the areas of clinical concern in the right breast.? Specifically, no abscess identified.? ? Recommend further evaluation with mammography when clinically feasible. ? BI-RADS 0:? Additional imaging recommended. ? ? ? Dictated by: Jos Alonso M.D. on 05/24/2022 at 2:04 ? ? Approved by: Jos Alonso M.D. on 05/24/2022 at 2:[address] [address] Ultrasound Report Signed Patient: Saundra Sena MR#: [id number] : 1985 Acct:[id number] Age/Sex: 36 / F Date of Service: 05/23/22 Loc: ED Accession Number: [id number] ?? Procedure: US breast LT limited Ordering Provider: Nahid Ken MD PROCEDURE: US BREAST LT LIMITED ? COMPARISON: None. ? INDICATIONS: Pain and swelling ? FINDINGS: ? Ultrasound evaluation of the left breast in the areas of clinical concern at the 11:00 retroareolar region as well as the 10:00, 9:00, and 6:00 regions demonstrate no discrete cystic or solid mass. ? IMPRESSION: ? 1. No discrete mass demonstrated in the left breast in the areas of clinical concern.? ? Recommend further evaluation with mammography. ? BI-RADS 0:? Additional imaging recommended.? Dictated by: Jos Alonso M.D. on 05/24/2022 at 1:52 ? ? Approved by: Jos Alonso M.D. on 05/24/2022 at 1:55 ? ? MDM Narrative Medical decision making narrative: Appropriate for discharge home. Exam and imaging otherwise reassuring. I did speak with General surgery for follow-up and agrees with antibiotics and follow up in his office. Patient is still waiting for referral by walk-in clinic with her [employer] insurance as well. Antibiotics changed to doxycycline today. Patient understands this. Previous Augmentin. Return precautions reviewed with her. She desires discharge home Discharge Plan Departure Patient Disposition: Home Clinical Impression: Postoperative wound infection Instructions: DI for Wound Infection Activity Restrictions/Additional Instructions: Call provided general surgery office tomorrow for office re-evaluation of your skin wounds. Continue dressing changes daily with topical antibiotic and dressing. Return if worse if any questions or concerns. Prescriptions: New doxycycline monohydrate 100 mg capsule 100 mg PO BID Qty: 20 0RF No Action cyclobenzaprine 10 mg tablet 10 mg PO TID PRN (Reason: muscle spasm) Qty: 20 0RF prednisone 20 mg tablet 40 mg PO DAILY Qty: 8 0RF oxycodone-acetaminophen [Percocet] 5-325 mg tablet 1 tab PO Q6H PRN (Reason: pain) Qty: 5 0RF prednisone 20 mg tablet 40 mg PO DAILY Qty: 10 0RF methocarbamol 750 mg tablet 750 mg PO Q8H PRN (Reason: muscle spasm) Qty: 20 0RF hydrocodone-acetaminophen [Ragland] 5-325 mg tablet 1 tab PO Q4-6H PRN (Reason: pain) Qty: 14 0RF Referrals: Owen Mahoney MD [Physician] - Bonny Chew PA-C [Primary Care Provider] - Visit Report Forms: Patient Portal/API
--- NOTE | 2022-05-23 23:51 | DI.US.S_ITS ---
PROCEDURE: US BREAST LT LIMITED COMPARISON: None. INDICATIONS: Pain and swelling FINDINGS: Ultrasound evaluation of the left breast in the areas of clinical concern at the 11:00 retroareolar region as well as the 10:00, 9:00, and 6:00 regions demonstrate no discrete cystic or solid mass. IMPRESSION: 1. No discrete mass demonstrated in the left breast in the areas of clinical concern. Recommend further evaluation with mammography. BI-RADS 0: Additional imaging recommended. Dictated by: Jos Alonso M.D. on 05/24/2022 at 1:52 Approved by: Jos Alonso M.D. on 05/24/2022 at 1:55
--- NOTE | 2022-05-23 23:51 | DI.US.S_ITS ---
PROCEDURE: US BREAST RT LIMITED COMPARISON: None. INDICATIONS: Pain and swelling FINDINGS: Ultrasound evaluation of the right breast in the areas of clinical concern at the 5:00 retroareolar region and 6:00 region demonstrate no discrete cystic or solid mass. IMPRESSION: 1. No discrete mass demonstrated in the areas of clinical concern in the right breast. Specifically, no abscess identified. Recommend further evaluation with mammography when clinically feasible. BI-RADS 0: Additional imaging recommended. Dictated by: Jos Alonso M.D. on 05/24/2022 at 2:04 Approved by: Jos Alonso M.D. on 05/24/2022 at 2:12
[2022-05-24] MEDS: DOXYCYCLINE HYCLATE 100 MG TABLET PO (00:03)
[2022-05-24] MEDS: BACITRACIN OINT 0.9 GM PCKT 4 APPLIC TOP (00:56)
--- NOTE | 2022-05-24 00:58 | PC.NURSE ---
dressings to all 4 wounds
== END 2022-05-24 00:59 | disposition home or self-care (01) ==
PROVIDERS: Emergency Provider Emergency Medicine; Family Provider Physician Assistant Medical; PCP Physician Assistant Medical
DX: T81.49XA Infection following a procedure, other surgical site, initial encounter (principal)
CPT/HCPCS: 76642; 99283

== ENCOUNTER 2023-03-22 17:50 | Emergency (ER) | payer OTHER, SELFPAY ==
[2023-03-22 18:00] VITALS: BP 123/79; PULSE 98; RESP 18; TEMP 36.8; O2SAT 100; BMI 18.1
--- NOTE | 2023-03-22 18:05 | DI.RAD.S_ITS ---
PROCEDURE: XR HAND RT MIN 3V INDICATIONS: injury/pain TECHNIQUE: 3 views of the hand(s) acquired. COMPARISON: None. FINDINGS: Bones: A questionable nondisplaced 5th metacarpal neck fracture is seen on oblique view. No dislocation. Soft tissues: No suspicious calcifications. IMPRESSION: Possible nondisplaced 5th metacarpal neck fracture seen on oblique view. Correlate with location of tenderness. Dictated by: Dileep Raza M.D. on 03/22/2023 at 19:02 Approved by: Dileep Raza M.D. on 03/22/2023 at 19:04
[2023-03-22] MEDS: ACETAMINOPHEN 325 MG TABLET 975 MG PO (18:08)
--- NOTE | 2023-03-22 18:25 | ED.UPPEXIN ---
HPI - Extremity Injury (Upper) <Michael Adan PA-C - Last Filed: 03/22/23 19:23> General Chief Complaint: Extremity Injury, Upper Stated Complaint: Rink little finger injury Time Seen by Provider: 03/22/23 18:13 Source: patient Mode of arrival: Ambulatory History of Present Illness HPI narrative: This is a 37-year-old female presents emergency department due to a right 5th finger injury. She states that she was pulling part of stump when her finger? went sideways?. She is not recall the exact events that happened. She is reporting pain throughout her right 5th finger. Slight movement at the MCP joint. Denies any numbness. Related Data Previous Rx's Medication Instructions Recorded cyclobenzaprine 10 mg tablet 10 mg PO TID PRN muscle spasm #20 01/11/21 tabs methocarbamol 750 mg tablet 750 mg PO Q8H PRN muscle spasm #20 06/23/21 tabs doxycycline monohydrate 100 mg 100 mg PO BID #20 caps 05/24/22 capsule hydrocodone 5 mg-acetaminophen 325 1 tab PO Q4-6H PRN pain #14 tabs 05/29/ mg tablet oxycodone 5 mg capsule 5 mg PO Q6H PRN pain #30 caps 03/22/23 Allergies Allergy/AdvReac Type Severity Reaction Status Date / Time No Known Allergies Allergy Verified 03/22/23 18:11 Review of Systems <Michael Adan PA-C - Last Filed: 03/22/23 19:23> Review of Systems Narrative: GENERAL: Denies chills, fatigue, malaise, fever, sweats. HEENT: Denies sinus pain, ear pain, sore throat, difficulty swallowing, dizziness. RESPIRATORY: Denies dyspnea, cough, wheezing, hemoptysis, sputum. CARDIOVASCULAR: Denies chest pain, palpitations, orthopnea, edema, GASTROINTESTINAL: Denies nausea, vomiting, abdominal pain, diarrhea, constipation, melena. : Denies dysuria, frequency, incontinence, hematuria, urinary retention. MUSCULOSKELETAL: Right 5th finger pain, otherwise denies weakness, joint pain, or bony pain SKIN: Denies rash, skin lesions, or other NEUROLOGIC: Denies weakness, headache, numbness, change in speech, confusion, seizures, incoordination. PSYCHIATRIC: No concerning psychosocial issues. 12 point review of systems is negative except for those stated above Patient History <Michael Adan PA-C - Last Filed: 03/22/23 19:23> Medical History (Updated 03/22/23 @ 19:20 by Michael Adan PA-C) Rheumatoid arthritis (04/11/16) Surgical History History of third molar tooth extraction History of tonsillectomy Status post exploratory laparotomy Status post laparoscopic supracervical hysterectomy (07/10/16) Status post myringotomy with insertion of tube Social History Smoking Status: Current every day smoker Smoking Status: Current every day smoker tobacco type: vaping alcohol intake frequency: holidays/special occasions only Substance Use Type: does not use Exam <Michael Adan PA-C - Last Filed: 03/22/23 19:23> Narrative Exam Narrative: GENERAL: Well-developed patient, in mild distress. HEAD: Atraumatic. Normocephalic. EYES: Pupils equal round and reactive. Extraocular motions intact. No scleral icterus. No injection or drainage. ENT: Nose without bleeding, purulent drainage. Throat without erythema, tonsillar hypertrophy or exudate. Airway patent. NECK: Trachea midline. Non tender CARDIOVASCULAR: Regular rate and rhythm without murmurs, gallops, or rubs. RESPIRATORY: Clear to auscultation. Breath sounds equal bilaterally. No wheezes, rales, or rhonchi. GASTROINTESTINAL: Abdomen soft, non-tender, nondistended. EXTREMITIES: Diffuse tenderness to palpation to the right 5th finger. Range of motion decreased secondary to pain. Maintains flexion-extension at the MCP joint. Neurovascularly intact throughout.. BACK: Nontender without deformity or crepitance. No flank tenderness. NEURO: AOx3. SKIN: No rash or erythema of visible areas Initial Vital Signs Initial Vital Signs: Vital Signs Temperature 98.3 F 03/22/23 18:00 Pulse Rate 98 H 03/22/23 18:00 Respiratory Rate 18 03/22/23 18:00 Blood Pressure 123/79 03/22/23 18:00 Pulse Oximetry 100 03/22/23 18:00 Oxygen Delivery Method Room Air 03/22/23 18:00 <Edgar Rivera DO - Last Filed: 03/22/23 21:56> Initial Vital Signs Initial Vital Signs: Vital Signs Temperature 98.3 F 03/22/23 18:00 Pulse Rate 98 H 03/22/23 18:00 Respiratory Rate 18 03/22/23 18:00 Blood Pressure 123/79 03/22/23 18:00 Pulse Oximetry 100 03/22/23 18:00 Oxygen Delivery Method Room Air 03/22/23 18:00 Course <Michael Adan PA-C - Last Filed: 03/22/23 19:23> Orders Ordered: ED Orders 03/22/23 18:05 XR hand RT min 3V Stat Discontinued Medications Acetaminophen (Acetaminophen 325 Mg Tablet) 975 mg PO NOW ONE Stop: 03/22/23 18:05 Last Admin: 03/22/23 18:08 Dose: 975 mg Documented By: PERLA Vital Signs Vital signs: Vital Signs - 8 hr 03/22/23 18:00 03/22/23 19:36 Temperature 98.3 F Pulse Rate 98 H 78 Respiratory Rate 18 17 Blood Pressure 123/79 137/83 Pulse Oximetry 100 100 Oxygen Delivery Method Room Air Room Air <Edgar Rivera DO - Last Filed: 03/22/23 21:56> Orders Ordered: ED Orders 03/22/23 18:05 XR hand RT min 3V Stat Discontinued Medications Acetaminophen (Acetaminophen 325 Mg Tablet) 975 mg PO NOW ONE Stop: 03/22/23 18:05 Last Admin: 03/22/23 18:08 Dose: 975 mg Documented By: PERLA Vital Signs Vital signs: Vital Signs - 8 hr 03/22/23 18:00 03/22/23 19:36 Temperature 98.3 F Pulse Rate 98 H 78 Respiratory Rate 18 17 Blood Pressure 123/79 137/83 Pulse Oximetry 100 100 Oxygen Delivery Method Room Air Room Air MDM - Extremity Injury (Upper) <Michael Adan PA-C - Last Filed: 03/22/23 19:23> Imaging Data Extremity x-ray #1: Radiologist's Impression: [address] [address] XRay Report Signed Patient: Saundra Sena MR#: [id number] : 1985 Acct:[id number] Age/Sex: 37 / F Date of Service: 03/22/23 Loc: ED Accession Number: [id number] ?? Procedure: XR hand RT min 3V Ordering Provider: Emili Siddiqui MD PROCEDURE:? XR HAND RT MIN 3V ? INDICATIONS:? injury/pain ? TECHNIQUE:? 3 views of the hand(s) acquired.? ? COMPARISON:? None. ? FINDINGS:? ? Bones:? A questionable nondisplaced 5th metacarpal neck fracture is seen on oblique view. ?No dislocation. ? Soft tissues:? No suspicious calcifications. ? ? IMPRESSION:? Possible nondisplaced 5th metacarpal neck fracture seen on oblique view.? Correlate with location of tenderness. ? ? Dictated by: Dileep Raza M.D. on 03/22/2023 at 19:02 ? ? Approved by: Dileep Raza M.D. on 03/22/2023 at 19:04 ? MDM Narrative Medical decision making narrative: MDM * differential diagnosis includes but not limited to right ring finger sprain, fracture * Prior records reviewed: Patient has not been here for similar complaints in the past. * My lab interpretation: None obtained * My imaging interpretation: X-ray showed a 5th metacarpal neck fracture * Clinical Decision Rules/Scores evaluated: None * Independent discussions with: None ED Course: This is a 37-year-old female presents emergency department after jamming her finger and hand while working with the stump. She was neurovascularly intact throughout. X-ray showed a 5th metacarpal neck fracture. Patient was placed in ulnar gutter splint and recommended follow up with Orthopedics. Shared Decision Making: Discussed plan with patient who is comfortable with the plan. Social Considerations: None Disposition: Discharged home Discharge Plan Departure Patient Disposition: Home Clinical Impression: Fracture of metacarpal Instructions: DI for Fracture Activity Restrictions/Additional Instructions: Thank you for coming to the [facility] Emergency Department today. Your x-ray shows showed a fracture of the hand in the area where showed you. Please follow up with Orthopedics who is information is below. Please use Tylenol for the pain but you may use oxycodone as needed for breakthrough pain. I hope you feel better soon. If you do not have a primary care provider please contact the [facility] Resource line at [phone]. They will ask some questions about your medical history and help you get set up with a provider in the community. Prescriptions: New oxycodone 5 mg capsule 5 mg PO Q6H PRN (Reason: pain) Qty: 30 0RF No Action hydrocodone-acetaminophen 5-325 mg tablet 1 tab PO Q4-6H PRN (Reason: pain) Qty: 14 0RF cyclobenzaprine 10 mg tablet 10 mg PO TID PRN (Reason: muscle spasm) Qty: 20 0RF methocarbamol 750 mg tablet 750 mg PO Q8H PRN (Reason: muscle spasm) Qty: 20 0RF doxycycline monohydrate 100 mg capsule 100 mg PO BID Qty: 20 0RF Referrals: Alla Deng MD [Physician] - (Follow up 5th metacarpal fracture) Bonny Chew PA-C [Primary Care Provider] - Stand Alone Forms: Patient Portal/API <Edgar Rivera DO - Last Filed: 03/22/23 21:56> Cosign ED Attending Cosignature Attestation: Dr Rivera Co-Sign Statement: I was available for consultation during this patient's emergency department visit. This chart is signed by myself for administrative purposes only. I did not have direct contact with this patient during this visit. They were seen independently by the APC.
--- NOTE | 2023-03-22 19:35 | PC.NURSE ---
ulnar gutter splint
[2023-03-22 19:36] VITALS: BP 137/83; PULSE 78; RESP 17; O2SAT 100
== END 2023-03-22 19:38 | disposition home or self-care (01) ==
PROVIDERS: Emergency Provider Physician Assistant Medical; Family Provider Physician Assistant Medical; PCP Physician Assistant Medical
DX: S62.336A Displaced fracture of neck of fifth metacarpal bone, right hand, initial encounter for closed fracture (principal); X50.1XXA Overexertion from prolonged static or awkward postures, initial encounter
CPT/HCPCS: 73130; 99283

== ENCOUNTER 2023-06-11 01:38 | Emergency (ER) | payer OTHER, SELFPAY ==
[2023-06-11 01:42] VITALS: BP 105/65
[2023-06-11 01:43] VITALS: PULSE 83; O2SAT 96
--- NOTE | 2023-06-11 01:43 | ED.BACK ---
HPI - Back Pain/Injury General Chief Complaint: Back Pain/Injury Stated Complaint: Back Pain Time Seen by Provider: 06/11/23 01:43 History of Present Illness HPI Narrative: 37-year-old female brought in by ambulance for back pain. This was not associated with a traumatic injury. History is obtained from the patient and EMS. Patient has apparently had numerous back surgeries in the past and has recently had an increase in back pain and pain radiating down her left leg. EMS was called secondary to her being unable to ambulate due to pain. She received IV fentanyl from EMS total of 250 mcg prior to arrival. The patient is on chronic opiates. Uses tramadol and oxycodone, oxycodone doses 7.5 mg up to twice a day although she reports she uses less frequently than that. She goes to [facility] for pain management. She was seen by [address] [place] [address] [address] [place] [address] Flores for neurosurgery. She says that she had a L5-S1 fusion in September of this year. She was seen here in May of 2021 for back pain the note was reviewed, she had an MRI in October 2020 over lumbar spine that report was reviewed, she had an L5-S1 laminotomy postoperative changes no cord compression degenerative disc disease. She is not having problems with bowel or bladder control she is able to void spontaneously she is not having dysuria she is not having fevers. She is not had any recent traumatic injury. Says that she believes that possibly sitting in the car today during a drive caused an increase in her pain. She has a secondary complaint of chest pain. It is right-sided radiating from her back to her chest. It hurts to take a deep breath in and a cough she does not have a cough she does not have fevers she is not short of breath. She is not had any recent long immobilizations or leg swelling. Related Data Previous Rx's Medication Instructions Recorded cyclobenzaprine 10 mg tablet 10 mg PO TID PRN muscle spasm #20 01/11/21 tabs methocarbamol 750 mg tablet 750 mg PO Q8H PRN muscle spasm #20 06/23/21 tabs doxycycline monohydrate 100 mg 100 mg PO BID #20 caps 05/24/22 capsule hydrocodone 5 mg-acetaminophen 325 1 tab PO Q4-6H PRN pain #14 tabs 05/29/22 mg tablet oxycodone 5 mg capsule 5 mg PO Q6H PRN pain #30 caps 03/22/23 methylprednisolone 4 mg tablets in See Rx Instructions PO .COMPLEX 06/11/23 a dose pack (Medrol (Tam)) #21 ea Allergies Allergy/AdvReac Type Severity Reaction Status Date / Time No Known Allergies Allergy Verified 03/22/23 18:11 Patient History Medical History (Updated 06/11/23 @ 02:59 by Joseph Staton MD) Rheumatoid arthritis (04/11/16) Surgical History Status post laparoscopic supracervical hysterectomy (07/10/16) Status post exploratory laparotomy Status post myringotomy with insertion of tube History of tonsillectomy History of third molar tooth extraction Social History Smoking Status: Current every day smoker Smoking Status: Current every day smoker tobacco type: vaping alcohol intake frequency: holidays/special occasions only Substance Use Type: does not use Exam Narrative Exam Narrative: Thin female, she grimaces with movement but otherwise appears to be in no distress Initial Vital Signs Initial Vital Signs: Vital Signs Blood Pressure 105/65 06/11/23 01:42 Eyes Pupils: PERRL and pinpoint EOM: EOM intact bilaterally Neck Neck: normal visual inspection and no meningeal signs Chest Other: Tenderness to pressure on the anterior chest wall on the right side Resp Effort & Inspection: normal respiratory effort and able to speak in complete sentences Auscultation: clear to auscultation bilaterally Cardio Rate: regular rate Rhythm: regular rhythm Heart Sounds: S1 normal and S2 normal GI Other: Bowel sounds are normal, no abdominal tenderness abdomen is flat. There is no CVAT Back/Spine/Pelvis Other: No focal tenderness of the thoracic or lumbar spine has some tenderness in the left sacral area Skin General: no rashes or lesions noted and warm Neuro General: patient alert, patient awake, patient oriented x3 and deep tendon reflexes 2+ bilaterally Motor: strength 5/5 throughout Sensory Exam: no sensory deficits noted DTR's: Rt Patellar: 2+, Lt Patellar: 2+, Rt Ankle: 2+ and Lt Ankle: 2+ Course Orders Ordered: ED Orders 06/11/23 02:04 XR chest 1V Stat 06/11/23 02:10 Complete Blood Count AUTO DIFF Stat Comprehensive Metabolic Panel Stat Lipase Stat Troponin & CK Cardiac Panel Stat Discontinued Medications Ketorolac Tromethamine (Ketorolac 30 Mg/Ml Vial) 15 mg IV NOW ONE Stop: 06/11/23 02:05 Last Admin: 06/11/23 02:11 Dose: 15 mg Prednisone (Prednisone 20 Mg Tablet) 60 mg PO NOW ONE Stop: 06/11/23 02:05 Last Admin: 06/11/23 02:11 Dose: 60 mg Reevaluation(s) Reevaluation #1: Re-evaluated at 2:50 a.m.. Patient is feeling better in fact she was sleeping in the room when I went to encounter. Discussed reassuring evaluation and recommendations for treatment including a steroid taper and follow up with her outpatient providers. Patient understands that he is in agreement Vital Signs Vital signs: Vital Signs - 8 hr 06/11/23 01:42 06/11/23 01:43 06/11/23 01:50 Temperature 98.2 F Pulse Rate 83 85 Respiratory Rate 16 Blood Pressure 105/65 105/65 Pulse Oximetry 96 98 Oxygen Delivery Method Room Air 06/11/23 02:00 06/11/23 02:00 06/11/23 02:30 Temperature Pulse Rate 79 67 Respiratory Rate 16 Blood Pressure 110/68 Pulse Oximetry 96 94 Oxygen Delivery Method 06/11/23 02:30 06/11/23 03:00 06/11/23 03:00 Temperature Pulse Rate 63 Respiratory Rate 10 L Blood Pressure 102/57 L 91/51 L Pulse Oximetry 95 Oxygen Delivery Method MDM - Back Pain/Injury Lab Data Lab results narrative: CBC, CMP and troponin are unremarkable 06/11/23 02:10 06/11/23 02:10 Labs: Lab Results 06/11/23 Range/Units 02:10 WBC 5.7 (4.5-11.0) X10^3/uL RBC 3.79 L (4.0-5.2) X10^6/uL Hgb 11.1 L (12.0-16.0) g/dL Hct 32.5 L (36-46) % MCV 85.8 (80-100) fL MCH 29.4 (26-34) PG MCHC 34.2 (30-36) % RDW 13.3 (11.6-14.8) % Plt Count 249 (150-400) X10^3/uL Neut % (Auto) 52.4 (50-75) % Lymph % (Auto) 32.7 (25-40) % Hidalgo % (Auto) 13.6 (3-14) % Eos % (Auto) 0.7 L (2-4) % Baso % (Auto) 0.6 (0-2) % Neut # (Auto) 3000 (8276-3320) /uL Lymph # (Auto) 1900 (9379-5796) /uL [place]go # (Auto) 800 (0-900) /uL Eos # (Auto) 0 (0-450) /uL Baso # (Auto) 0 (0-100) /uL Sodium 134 L (137-145) mmol/L Potassium 4.0 (3.4-5.1) mmol/L Chloride 101 (98-107) mmol/L Carbon Dioxide 26 (22-32) mmol/L BUN 8 (7-17) mg/dL Creatinine 0.50 L (0.52-1.04) mg/dL Estimated GFR > 60 (>60) mL/min BUN/Creatinine Ratio 16.0 (6-22) Glucose 110 H (70-100) mg/dL Calcium 8.9 (8.4-10.2) mg/dL Total Bilirubin 0.8 (0.2-1.3) mg/dL AST 17 (14-36) IU/L ALT 16 (<35) IU/L Alkaline Phosphatase 50 (38-126) U/L Total Creatine Kinase 24 L (30-135) U/L Troponin I < 0.012 (0.01-0.034) ng/mL Total Protein 7.2 (6.3-8.2) g/dL Albumin 3.8 (3.5-5.0) g/dL Globulin 3.4 (1.7-4.1) g/dL Albumin/Globulin Ratio 1.1 (1.0-2.8) Lipase 77 (23-300) U/L Imaging Data Chest x-ray: My Impression: Portable chest x-ray reviewed, no acute findings Radiologist's Impression: Negative chest ECG Data Interpretation: ECG shows sinus rhythm at 72 no acute ischemic changes normal intervals incomplete right bundle-branch block MDM Narrative Medical decision making narrative: 37-year-old female with chronic back pain and chronic opiate use as well as rheumatoid arthritis presenting with increased back pain and left-sided sciatica. Thirty secondary complaint of chest pain. Differential diagnosis includes musculoskeletal back pain, cauda equina syndrome, epidural abscess or other spinal infection. Given her lack of fever and the fact that it has been several months since her surgery and no risk factors facet injection drug use or diabetes I think it is unlikely she has a spinal infection. History and exam do not suggest cauda equina syndrome. There is a secondary complaint of chest pain, this seems to be chest wall pain, does not have an elevated troponin that is spite of having had chest pain for greater than 8 hours no infiltrate or pneumothorax, I considered pulmonary embolism does not have leg swelling leg pain tachycardia or hypoxia I do not think that further workup of this is necessary. Discharge Plan Departure Patient Disposition: Home Clinical Impression: Chest wall pain Acute back pain with sciatica Qualifiers: Laterality: left Qualified Code(s): M54.42 - Lumbago with sciatica, left side Instructions: DI for Back Pain With Sciatica Activity Restrictions/Additional Instructions: Emergency department workup tonight is reassuring. I do not think that you have a dangerous cause for your back or chest pain. I have started the tapering dose of steroids (a Medrol Dosepak) which I am hoping will help your pain be better food. You can continue with her previous home pain medications and also supplement that with ibuprofen 600 mg up to 3 times a day take this with food. Follow up soon with your pain management provider and your spine doctor. Return to the emergency department for fevers inability to urinate increasing shortness of breath or other acute symptoms Prescriptions: New methylprednisolone [Medrol (Tam)] 4 mg tablets,dose pack See Rx Instructions .ROUTE .COMPLEX Qty: 21 0RF Rx Instructions: orally per package directions No Action hydrocodone-acetaminophen 5-325 mg tablet 1 tab PO Q4-6H PRN (Reason: pain) Qty: 14 0RF cyclobenzaprine 10 mg tablet 10 mg PO TID PRN (Reason: muscle spasm) Qty: 20 0RF methocarbamol 750 mg tablet 750 mg PO Q8H PRN (Reason: muscle spasm) Qty: 20 0RF doxycycline monohydrate 100 mg capsule 100 mg PO BID Qty: 20 0RF oxycodone 5 mg capsule 5 mg PO Q6H PRN (Reason: pain) Qty: 30 0RF Referrals: Bonny Chew PA-C [Primary Care Provider] - Stand Alone Forms: Patient Portal/API
[2023-06-11 01:50] VITALS: BP 105/65; PULSE 85; RESP 16; TEMP 36.8; O2SAT 98; BMI 17.9
[2023-06-11 02:00] VITALS: BP 110/68; PULSE 79; O2SAT 96
--- NOTE | 2023-06-11 02:04 | DI.RAD.S_ITS ---
PROCEDURE: XR CHEST 1V INDICATIONS: chest pain TECHNIQUE: One view of the chest was acquired. COMPARISON: None. FINDINGS: Surgical changes and devices: None. Lungs and pleura: Lungs are clear. No pleural effusions or pneumothorax. Mediastinum: Mediastinal contours appear normal. Heart size is normal. Bones and chest wall: No suspicious bony lesions. Overlying soft tissues appear unremarkable. IMPRESSION: No acute cardiopulmonary disease. Dictated by: Chula Jernigan M.D. on 06/11/2023 at 8:30 Approved by: Chula Jernigan M.D. on 06/11/2023 at 8:34
[2023-06-11] MEDS: predniSONE 20 MG TABLET 60 MG PO (02:11)
[2023-06-11] MEDS: KETOROLAC 30 MG/ML VIAL 15 MG IV (02:11)
[2023-06-11 02:25] LABS: Add Manual Diff / Slide Review NO; Basophils Absolute Auto 0 /uL (0-100); Basophils Percent Auto 0.6 % (0-2); Eosinophils Absolute Auto 0 /uL (0-450); Eosinophils Percent Auto 0.7 % (2-4); Hematocrit 32.5 % (36-46); Hemoglobin 11.1 g/dL (12.0-16.0); Lymphocytes Absolute Auto 1900 /uL (1100-4500); Lymphocytes Percent Auto 32.7 % (25-40); Mean Corpuscular HGB Conc 34.2 % (30-36); Mean Corpuscular Hemoglobin 29.4 PG (26-34); Mean Corpuscular Volume 85.8 fL (80-100); Monocytes Absolute Auto 800 /uL (0-900); Monocytes Percent Auto 13.6 % (3-14); Neutrophils Absolute Auto 3000 /uL (1500-7000); Neutrophils Percent Auto 52.4 % (50-75); Platelet Count 249 X10^3/uL (150-400); Red Blood Cell Count 3.79 X10^6/uL (4.0-5.2); Red Cell Distribution Width 13.3 % (11.6-14.8); White Blood Cell Count 5.7 X10^3/uL (4.5-11.0)
[2023-06-11 02:30] VITALS: BP 102/57; PULSE 67; RESP 16; O2SAT 94
[2023-06-11 02:33] LABS: Alanine Aminotransferase 16 IU/L (<35); Albumin 3.8 g/dL (3.5-5.0); Albumin Globulin Ratio 1.1 (1.0-2.8); Alkaline Phosphatase 50 U/L (38-126); Aspartate Aminotransferase 17 IU/L (14-36); Bilirubin Total 0.8 mg/dL (0.2-1.3); Blood Urea Nitrogen 8 mg/dL (7-17); Calcium 8.9 mg/dL (8.4-10.2); Carbon Dioxide 26 mmol/L (22-32); Chloride 101 mmol/L (98-107); Creatine Kinase 24 U/L (30-135); Estimated Glomerular Filt Rate > 60 mL/min (>60); Globulin 3.4 g/dL (1.7-4.1); Glucose 110 mg/dL (70-100); HEMOLYSIS < 15 (0-50); Lipase 77 U/L (23-300); Sodium 134 mmol/L (137-145); Total Protein 7.2 g/dL (6.3-8.2)
[2023-06-11 02:45] LABS: Troponin I < 0.012 ng/mL (0.01-0.034)
[2023-06-11 03:00] VITALS: BP 91/51; PULSE 63; RESP 10; O2SAT 95
== END 2023-06-11 03:28 | disposition home or self-care (01) ==
PROVIDERS: Emergency Provider Emergency Medicine; Family Provider Physician Assistant Medical; PCP Physician Assistant Medical
DX: M54.42 Lumbago with sciatica, left side (principal); R07.89 Other chest pain
CPT/HCPCS: 36415; 71045; 80053; 82550; 83690; 84484; 85025; 93005; 93010; 96374; 99284; J1885

== ENCOUNTER → 2023-06-26 12:28 | Outpatient (CLI) | payer OTHER, SELFPAY ==
--- NOTE | 2023-06-26 | DI.RAD.S_ITS ---
PROCEDURE: XR LUMBAR SPINE 6V W BENDING INDICATIONS: Postlaminectomy syndrome TECHNIQUE: 7 views of the lumbar spine acquired, including flexion and extension views.>> COMPARISON: [facility], , L-SPINE 2-3 VIEWS, 07/01/2013, 19:53. FINDINGS: Bones: 5 nonrib-bearing vertebrae are present. There is normal bony alignment. No vertebral body compression fractures. No suspicious bony lesions. Patient is status post posterior spinal fusion at L5-S1. Surgical hardware appears in good position. There may be some minimal lucency surrounding the pedicle screws at L5 and if further evaluation is clinically indicated a CT of the lumbar spine may be of further clinical value. Soft tissues: Overlying bowel gas pattern is normal. No suspicious soft tissue calcifications. Flexion/extension: There is normal range of motion, with preserved normal alignment. IMPRESSION: 1. Interval postsurgical posterior spinal fusion L5-S1 with some questionable minimal lucency surrounding the pedicle screws at L5 if further evaluation is clinically indicated a CT of the lumbar spine may be of further clinical value. Dictated by: Edgar Alvarado M.D. on 06/26/2023 at 16:57 Approved by: Edgar Alvarado M.D. on 06/26/2023 at 17:00
--- NOTE | 2023-06-26 | DI.MRI.S_ITS ---
PROCEDURE: MR LUMBAR SPINE WO CON INDICATIONS: Postlaminectomy syndrome TECHNIQUE: Noncontrast sagittal T1 spin echo and T2 fast echo, sagittal STIR, and T2 fast spin echo through the lumbar spine. In cases with scoliosis, additional coronal T2 fast spin echo may be performed. COMPARISON: [facility], MR, MR LUMBAR SPINE WO/W CON, 11/26/2020, 7:05. [facility], CR, XR LUMBAR SPINE 6V W BENDING, 06/26/2023, 13:05. FINDINGS: Image quality: This examination is limited by involuntary motion artifact. There is artifact associated with the metallic hardware. Alignment and Curvature: There is mild grade 1 anterolisthesis seen at the L5-S1 level. Bone Marrow: Marrow is of normal overall signal. No acute vertebral body compression fractures. Spinal Cord: Conus medullaris terminates at the L1-L2 level. Visualized cord demonstrates normal signal and size. Paraspinous Soft Tissues: No paravertebral masses. T12-L1: Normal appearance. L1-L2: Normal appearance. L2-L3: Normal appearance. L3-L4: No significant abnormality is seen. L4-L5: The disc height and disk signal are well-preserved. Mild generalized disc bulge is seen. Moderate facet joint hypertrophy is seen. Moderate bilateral neural foraminal narrowing can be seen, left worse than right. Minimal central canal narrowing is seen. These degenerative changes are slightly progressed compared to 2020. L5-S1: Postoperative changes are seen at this level, with bilateral pedicle screws and vertical fixation rods. Mild disc bulge is seen. Mild facet joint hypertrophy is seen. There is [id number] right-sided and moderate left-sided neural foraminal narrowing. No central canal narrowing is seen. These degenerative changes are clearly improved compared to the preoperative MRI. IMPRESSION: Postoperative change at L5-S1, with clear improvement compared to the preoperative MRI. L4-L5 degenerative change is seen, which is progressed compared to the 2020 images. Dictated by: Gumaro Ellis M.D. on 06/26/2023 at 17:18 Approved by: Gumaro Ellis M.D. on 06/26/2023 at 17:21
== END ==
PROVIDERS: Family Provider Physician Assistant Medical; PCP Physician Assistant Medical; Referring Provider Pain Medicine Pain Medicine; Visit Provider Pain Medicine Pain Medicine
DX: M96.1 Postlaminectomy syndrome, not elsewhere classified (principal); Z98.1 Arthrodesis status
CPT/HCPCS: 72114; 72148

== ENCOUNTER → 2024-06-04 10:49 | Outpatient (CLI) | payer OTHER, SELFPAY ==
--- NOTE | 2024-06-04 10:50 | DI.MRI.S_ITS ---
PROCEDURE: MR LUMBAR SPINE WO/W CON INDICATIONS: lumbar radiculopathy TECHNIQUE: Noncontrast sagittal T1 spin echo and T2 fast spin echo, sagittal STIR, axial T1 and T2 fast spin echo through the lumbar spine. In cases with scoliosis, additional coronal T2 fast spin echo may be performed. After the administration of contrast, sagittal and axial T1 spin echo with fat saturation through the lumbar spine. COMPARISON: [facility], , MR LUMBAR SPINE WO/W CON, 11/26/2020, 7:05. FINDINGS: Alignment and curvature: There is normal bony alignment. Marrow: Marrow edema noted throughout the L5 and S1 vertebral body. There has been and L5-S1 discectomy and fusion. Fluid is present in the left side of the a disc space extending into the prevertebral soft tissue. Posterior everardo and screw instrumentation noted as well. Spinal cord: Conus medullaris terminates at the L1 level. Visualized spinal cord demonstrates normal signal, without suspicious enhancement. Paraspinous soft tissues: There is partially visualized vigorous enhancement and edema anterior to L4 and L5 vertebral bodies particularly involving the right ileopsoas and iliacus musculature with asymmetric enlargement. Small focal fluid collections just anterior to the S1 vertebral body measure up to 1.5 cm likely reflecting abscess. T12-L1: Normal appearance. L1-L2: Normal appearance. L2-L3: Normal appearance. L3-L4: Normal appearance. L4-L5: Normal appearance. L5-S1: Discectomy and fusion with fluid in disc space extending into the prevertebral soft tissue as above. Posterior everardo and screw instrumentation present. Enhancement extends into both neural foramina. Ventral epidural enhancement at the L5 level spur related to venous congestion. No convincing evidence of epidural abscess IMPRESSION: L5-S1 instrumented discectomy and fusion is complicated by osteomyelitis discitis with vigorous edema and enhancement in the prevertebral soft tissues and probable small imbedded prevertebral abscess. Significant swelling and enhancement of the partially visualized right ileopsoas and iliacus musculature. And advise follow-up CT abdomen and pelvis with contrast for further evaluation Approved by: Reynold Pennington M.D. on 06/04/2024 at 17:27
== END ==
PROVIDERS: Family Provider Physician Assistant Medical; PCP Physician Assistant Medical; Referring Provider Physician Assistant Medical; Visit Provider Physician Assistant Medical
DX: M54.16 Radiculopathy, lumbar region (principal); M46.27 Osteomyelitis of vertebra, lumbosacral region; Z98.1 Arthrodesis status
CPT/HCPCS: 72158; A9579

== ENCOUNTER 2024-06-11 13:55 | Emergency (ER) | payer OTHER, SELFPAY ==
[2024-06-11] VITALS (15 sets, daily range): BP systolic 93–132; BP diastolic 53–82; PULSE 80–102; RESP 16–18; TEMP 37.9; O2SAT 98–100; BMI 16.5
--- NOTE | 2024-06-11 14:49 | ED_ITS ---
HPI - Back Pain/Injury General Chief Complaint: Back Pain/Injury Stated Complaint: Sent by MD; Blood Panel Poss Bone Infection Time Seen by Provider: 06/11/24 14:31 Source: patient History of Present Illness HPI Narrative: Patient is sent here by her spine surgeon from [place], Dr. Woodruff, she had MRI done 7 days ago here outpatient MRI. She had spine surgery 1 year ago. However since January of this year she has had off and on fevers. Has had back pain. She states it took a long time to get MRI approved by insurance company. Please see MRI results below. Her surgeon is aware of the results. I am trying to get patient transferred to [place] where she had her surgery for continuity of care at [facility] with her surgeon. Patient denies any limb numbness tingling or weakness. No bowel or bladder incontinence or retention. She does have high pain tolerance and fentanyl is medication of choice for her pain control. Denies any IV drug use or diabetes or chemotherapy or immune suppression or autoimmune disease. [address] [address] Magnetic Resonance Report Signed Patient: Saundra Sena MR#: [id number] : 1985 Acct:[id number] Age/Sex: 38 / F Date of Service: 06/04/24 Loc: MRI Accession Number: [id number] Procedure: MR lumbar spine wo/w con Ordering Provider: Bonny Chew P.A-C PROCEDURE: MR LUMBAR SPINE WO/W CON INDICATIONS: lumbar radiculopathy TECHNIQUE: Noncontrast sagittal T1 spin echo and T2 fast spin echo, sagittal STIR, axial T1 and T2 fast spin echo through the lumbar spine. In cases with scoliosis, additional coronal T2 fast spin echo may be performed. After the administration of contrast, sagittal and axial T1 spin echo with fat saturation through the lumbar spine. COMPARISON: [facility], , MR LUMBAR SPINE WO/W CON, 11/26/2020, 7:05. FINDINGS: Alignment and curvature: There is normal bony alignment. Marrow: Marrow edema noted throughout the L5 and S1 vertebral body. There has been and L5-S1 discectomy and fusion. Fluid is present in the left side of the a disc space extending into the prevertebral soft tissue. Posterior everardo and screw instrumentation noted as well. Spinal cord: Conus medullaris terminates at the L1 level. Visualized spinal cord demonstrates normal signal, without suspicious enhancement. Paraspinous soft tissues: There is partially visualized vigorous enhancement and edema anterior to L4 and L5 vertebral bodies particularly involving the right ileopsoas and iliacus musculature with asymmetric enlargement. Small focal fluid collections just anterior to the S1 vertebral body measure up to 1.5 cm likely reflecting abscess. T12-L1: Normal appearance. L1-L2: Normal appearance. L2-L3: Normal appearance. L3-L4: Normal appearance. L4-L5: Normal appearance. L5-S1: Discectomy and fusion with fluid in disc space extending into the prevertebral soft tissue as above. Posterior everardo and screw instrumentation present. Enhancement extends into both neural foramina. Ventral epidural enhancement at the L5 level spur related to venous congestion. No convincing evidence of epidural abscess IMPRESSION: L5-S1 instrumented discectomy and fusion is complicated by osteomyelitis discitis with vigorous edema and enhancement in the prevertebral soft tissues and probable small imbedded prevertebral abscess. Significant swelling and enhancement of the partially visualized right ileopsoas and iliacus musculature. And advise follow-up CT abdomen and pelvis with contrast for further evaluation Approved by: Reynold Pennington M.D. on 06/04/2024 at 17:27 Related Data Previous Rx's Medication Instructions Recorded cyclobenzaprine 10 mg tablet 10 mg PO TID PRN muscle spasm #20 01/11/21 tabs methocarbamol 750 mg tablet 750 mg PO Q8H PRN muscle spasm #20 06/23/21 tabs doxycycline monohydrate 100 mg 100 mg PO BID #20 caps 05/24/22 capsule hydrocodone 5 mg-acetaminophen 325 1 tab PO Q4-6H PRN pain #14 tabs 05/29/22 mg tablet oxycodone 5 mg capsule 5 mg PO Q6H PRN pain #30 caps 03/22/23 methylprednisolone 4 mg tablets in See Rx Instructions PO .COMPLEX 06/11/23 a dose pack (Medrol (Tam)) #21 ea Allergies Allergy/AdvReac Type Severity Reaction Status Date / Time No Known Allergies Allergy Verified 06/11/24 20:42 Review of Systems Review of Systems Narrative: GENERAL: Positive chills, fatigue, malaise, fever, sweats. HEENT: Negative sinus pain, ear pain, sore throat RESPIRATORY: Negative dyspnea, cough CARDIOVASCULAR: Negative chest pain, palpitations GASTROINTESTINAL: Negative nausea, vomiting, abdominal pain : Negative dysuria, frequency, hematuria MUSCULOSKELETAL: Positive muscle or bony pain SKIN: Negative rash, skin lesions NEUROLOGIC: Negative weakness, numbness ROS Unobtainable: All systems reviewed & are unremarkable except as noted in HPI and below Patient History Medical History (Updated 06/11/24 @ 15:26 by Nahid Ken MD) Rheumatoid arthritis (04/11/16) Surgical History Status post laparoscopic supracervical hysterectomy (07/10/16) Status post exploratory laparotomy Status post myringotomy with insertion of tube History of tonsillectomy History of third molar tooth extraction Social History Smoking Status: Current every day smoker Smoking Status: Current every day smoker tobacco type: vaping alcohol intake frequency: holidays/special occasions only Substance Use Type: does not use Exam Narrative Exam Narrative: GENERAL: in no distress, not toxic not dyspneic HEAD: Normocephalic. EYES: Pupils equal round ENT: Mucous membranes moist. NECK: Trachea midline. CARDIOVASCULAR: Regular rate and rhythm RESPIRATORY: Clear to auscultation. Breath sounds equal bilaterally. No wheezes, rales, or rhonchi. GASTROINTESTINAL: Abdomen soft, non-tender EXTREMITIES: No gross deformities. BACK: No flank tenderness. Mild midline tenderness lower lumbar spine midline, no fluctuance. No erythema. NEURO: AOx4. Light touch intact to leg. Able to flex and extend at hip knees and ankles. SKIN: Warm and dry PSYCH: Not anxious, is cooperative Initial Vital Signs Initial Vital Signs: Vital Signs Temperature 100.3 F H 06/11/24 14:01 Pulse Rate 90 06/11/24 14:01 Respiratory Rate 18 06/11/24 14:01 Blood Pressure 132/82 06/11/24 14:01 Pulse Oximetry 99 06/11/24 14:01 Oxygen Delivery Method Room Air 06/11/24 14:01 Course Orders Ordered: Discontinued Medications Acetaminophen (Acetaminophen 325 Mg Tablet) 975 mg PO NOW ONE Stop: 06/11/24 15:16 Last Admin: 06/11/24 15:24 Dose: 975 mg Documented By: OMER Fentanyl (Fentanyl 100 Mcg/2 Ml Inj) 100 mcg IV NOW ONE Stop: 06/11/24 14:55 Last Admin: 06/11/24 15:18 Dose: 100 mcg Documented By: OMER Fentanyl (Fentanyl 100 Mcg/2 Ml Inj) 100 mcg IV NOW ONE Stop: 06/11/24 16:13 Last Admin: 06/11/24 16:18 Dose: 100 mcg Documented By: OSKAR Fentanyl (Fentanyl 100 Mcg/2 Ml Inj) 100 mcg IV NOW ONE Stop: 06/11/24 18:01 Last Admin: 06/11/24 19:43 Dose: 100 mcg Documented By: OSKAR Ceftriaxone Sodium 2,000 mg/ (Sodium Chloride) 100 mls @ 200 mls/hr IV NOW ONE Stop: 06/11/24 14:51 Last Infusion: 06/11/24 16:00 Dose: Infused Documented By: Admin: 06/11/24 15:18 Dose: 200 mls/hr Documented By: OMER Vancomycin HCl (Vancomycin) 1,000 mg in 200 mls @ 200 mls/hr IV NOW ONE Stop: 06/11/24 16:14 Last Infusion: 06/11/24 17:46 Dose: Infused Documented By: Admin: 06/11/24 16:20 Dose: 200 mls/hr Documented By: OSKAR Ondansetron HCl (Ondansetron 4 Mg/2 Ml Inj) 4 mg IV NOW ONE Stop: 06/11/24 14:56 Last Admin: 06/11/24 16:00 Dose: 4 mg Documented By: OMER Vancomycin HCl (Vancomycin Per Pharmacy) 1 request MISC NOW PRN PRN Reason: sepsis Vital Signs Vital signs: Vital Signs - 8 hr 06/11/24 14:01 06/11/24 15:10 06/11/24 15:12 Temperature 100.3 F H Pulse Rate 90 102 H Respiratory Rate 18 Blood Pressure 132/82 120/73 Pulse Oximetry 99 100 Oxygen Delivery Method Room Air 06/11/24 15:30 06/11/24 15:30 06/11/24 15:59 Temperature Pulse Rate 102 H 99 H Respiratory Rate Blood Pressure 119/63 Pulse Oximetry 100 99 Oxygen Delivery Method 06/11/24 16:00 06/11/24 16:00 06/11/24 16:33 Temperature Pulse Rate 98 H 92 H Respiratory Rate 18 Blood Pressure 107/53 L Pulse Oximetry 98 100 Oxygen Delivery Method 06/11/24 17:00 06/11/24 17:30 06/11/24 17:45 Temperature Pulse Rate 93 H 83 Respiratory Rate Blood Pressure 103/70 Pulse Oximetry 99 99 Oxygen Delivery Method 06/11/24 17:45 06/11/24 18:00 06/11/24 18:00 Temperature Pulse Rate 86 88 Respiratory Rate Blood Pressure 93/53 L Pulse Oximetry 98 98 Oxygen Delivery Method MDM - Back Pain/Injury Lab Data 06/11/24 15:00 06/11/24 15:00 Labs: Lab Results 06/11/24 06/11/24 Range/Units 15:00 17:49 WBC 10.9 (4.5-11.0) X10^3/uL RBC 3.90 L (4.0-5.2) X10^6/uL Hgb 9.7 L (12.0-16.0) g/dL Hct 29.9 L (36-46) % MCV 76.5 L (80-100) fL MCH 24.7 L (26-34) PG MCHC 32.3 (30-36) % RDW 14.1 (11.6-14.8) % Plt Count 479 H (150-400) X10^3/uL Neut % (Auto) 68.4 (50-75) % Lymph % (Auto) 21.8 L (25-40) % [place] % (Auto) 8.9 (3-14) % Eos % (Auto) 0.3 L (2-4) % Baso % (Auto) 0.6 (0-2) % Neut # (Auto) 7400 H (2897-2763) /uL Lymph # (Auto) 2400 (2195-0868) /uL [place] # (Auto) 1000 H (0-900) /uL Eos # (Auto) 0 (0-450) /uL Baso # (Auto) 100 (0-100) /uL ESR 80 H (0-20) MM/HR Sodium 133 L (137-145) mmol/L Potassium 3.7 (3.4-5.1) mmol/L Chloride 100 (98-107) mmol/L Carbon Dioxide 25 (22-32) mmol/L BUN 7 (7-17) mg/dL Creatinine 0.57 (0.52-1.04) mg/dL Estimated GFR > 60 (>60) mL/min BUN/Creatinine Ratio 12.3 (6-22) Glucose 102 H (70-100) mg/dL Lactate 1.2 (0.7-2.1) mmol/L Calcium 8.4 (8.4-10.2) mg/dL Total Bilirubin 0.4 (0.2-1.3) mg/dL AST 16 (14-36) IU/L ALT 9 (<35) IU/L Alkaline Phosphatase 90 (38-126) U/L C-Reactive Protein 13.1 H (<1.0) mg/dL Total Protein 7.8 (6.3-8.2) g/dL Albumin 3.9 (3.5-5.0) g/dL Globulin 3.9 (1.7-4.1) g/dL Albumin/Globulin Ratio 1.0 (1.0-2.8) Procalcitonin < 0.030 (<0.5) ng/mL Serum , Qual Negative (Negative) SARS-CoV-2 (PCR) Negative (Negative) Urine Dip Bedside Urine Glucose Negative Bedside Urine Bilirubin - Negative Bedside Urine Ketone - Negative Urine Specific [place] 1.005 Bedside Urine Occult Blood - Negative Bedside Urine pH 7.0 Bedside Urine Protein - Negative Bedside Urine Urobilinogen - Negative Bedside Urine Nitrite - Negative Bedside Urine Leukocytes - Negative Esterase [facility] Narrative Medical decision making narrative: Patient is sent here by her spine surgeon from [place], Dr. Woodruff, she had MRI done 7 days ago here outpatient MRI. She had spine surgery 1 year ago. However since January of this year she has had off and on fevers. Has had back pain. She states it took a long time to get MRI approved by insurance company. Please see MRI results below. Her surgeon is aware of the results. I am trying to get patient transferred to [place] where she had her surgery for continuity of care at [facility] with her surgeon. Patient denies any limb numbness tingling or weakness. No bowel or bladder incontinence or retention. She does have high pain tolerance and fentanyl is medication of choice for her pain control. Denies any IV drug use or diabetes or chemotherapy or immune suppression or autoimmune disease. After history and exam CBC CMP blood culture lactic acid procalcitonin fentanyl Zofran vancomycin Rocephin, look to transfer for higher level of care, ESR CRP MDM Medical records reviewed: MRI from 1 week ago Differential considered: Includes but not limited to diskitis spinal abscess Lab Test results independently reviewed as above. Pertinent findings: WBC 5.7 hemoglobin 11.1 sodium 134 potassium 4.0 negative ESR 80 CRP 13.1 Independently reviewed EKG not indicated Imaging studies independently reviewed: MRI from 1 week ago Consultations: 2:50 p.m.. I spoke with patient's surgeon nurse in the office by phone, she will inform the surgeon, he is operating right now at [facility] as well as the on-call surgeon Dr. Cunningham, [facility] 3:[address] Quick, spine surgeon who was not on-call for our hospital. He is with our orthopedic group though he has been able to review the MRI. There is no epidural abscess however agrees for transfer and antibiotics and Infectious Disease Treatments: Fentanyl Zofran vancomycin Rocephin Re-evaluations: Updated patient results and agrees needs transfer for high level care/possible spinal surgery Discussion: Appropriate for transfer for higher level of care requiring spinal surgery, antibiotics have been started. Pain is controlled. Diagnosis: Osteomyelitis diskitis prevertebral abscess 6:[address] Ken: Sent to Dr. Siddiqui, awaiting call back from [facility] hospitalist to accept patient. Patient has [employer] insurance and we must go by their suggestions. I did speak with [facility] spine surgery Dr. Myers, who will admit ER to ER as well. Antibiotics have been started. Patient has a high tolerance for pain medication. Fentanyl works best for her. Addendum 6:[address] Ken: [facility] has accepted patient Dr. Harmon, has accepted patient. Still no call back from patient's personal spine surgeon from [place]. Discharge Plan Departure Patient Disposition: [facility] Clinical Impression: Spinal abscess Discitis Qualifiers: Spinal region: unspecified Qualified Code(s): M46.40 - Discitis, unspecified, site unspecified Osteomyelitis Qualifiers: Osteomyelitis type: unspecified type Osteomyelitis location: unspecified site Q ualified Code(s): M86.9 - Osteomyelitis, unspecified Prescriptions: No Action hydrocodone-acetaminophen 5-325 mg tablet 1 tab PO Q4-6H PRN (Reason: pain) Qty: 14 0RF cyclobenzaprine 10 mg tablet 10 mg PO TID PRN (Reason: muscle spasm) Qty: 20 0RF methocarbamol 750 mg tablet 750 mg PO Q8H PRN (Reason: muscle spasm) Qty: 20 0RF doxycycline monohydrate 100 mg capsule 100 mg PO BID Qty: 20 0RF oxycodone 5 mg capsule 5 mg PO Q6H PRN (Reason: pain) Qty: 30 0RF methylprednisolone [Medrol (Tam)] 4 mg tablets,dose pack See Rx Instructions .ROUTE .COMPLEX Qty: 21 0RF Rx Instructions: orally per package directions Referrals: Bonny Chew PA-C [Primary Care Provider] -
[2024-06-11 15:14] LABS: Add Manual Diff / Slide Review NO; Basophils Absolute Auto 100 /uL (0-100); Basophils Percent Auto 0.6 % (0-2); Eosinophils Absolute Auto 0 /uL (0-450); Eosinophils Percent Auto 0.3 % (2-4); Hematocrit 29.9 % (36-46); Hemoglobin 9.7 g/dL (12.0-16.0); Lymphocytes Absolute Auto 2400 /uL (1100-4500); Lymphocytes Percent Auto 21.8 % (25-40); Mean Corpuscular HGB Conc 32.3 % (30-36); Mean Corpuscular Hemoglobin 24.7 PG (26-34); Mean Corpuscular Volume 76.5 fL (80-100); Monocytes Absolute Auto 1000 /uL (0-900); Monocytes Percent Auto 8.9 % (3-14); Neutrophils Absolute Auto 7400 /uL (1500-7000); Neutrophils Percent Auto 68.4 % (50-75); Platelet Count 479 X10^3/uL (150-400); Red Cell Distribution Width 14.1 % (11.6-14.8); White Blood Cell Count 10.9 X10^3/uL (4.5-11.0)
[2024-06-11] MEDS: cefTRIAXone 2,000 MG in SODIUM CHLORIDE 0.9% 100 ML 200 MG IV (15:18)
[2024-06-11] MEDS: fentaNYL 100 MCG/2 ML INJ IV ×3 (15:18→19:43)
[2024-06-11 15:24] LABS: Pregnancy Test Serum,Qual Negative (Negative)
[2024-06-11] MEDS: ACETAMINOPHEN 325 MG TABLET 975 MG PO (15:24)
[2024-06-11 15:25] LABS: Alanine Aminotransferase 9 IU/L (<35); Albumin 3.9 g/dL (3.5-5.0); Alkaline Phosphatase 90 U/L (38-126); Aspartate Aminotransferase 16 IU/L (14-36); BUN Creatinine Ratio 12.3 (6-22); Bilirubin Total 0.4 mg/dL (0.2-1.3); Blood Urea Nitrogen 7 mg/dL (7-17); Calcium 8.4 mg/dL (8.4-10.2); Carbon Dioxide 25 mmol/L (22-32); Chloride 100 mmol/L (98-107); Estimated Glomerular Filt Rate > 60 mL/min (>60); Globulin 3.9 g/dL (1.7-4.1); Glucose 102 mg/dL (70-100); HEMOLYSIS < 15 (0-50); Potassium 3.7 mmol/L (3.4-5.1); Sodium 133 mmol/L (137-145); Total Protein 7.8 g/dL (6.3-8.2)
[2024-06-11 15:26] LABS: Lactate (Lactic Acid) 1.2 mmol/L (0.7-2.1)
[2024-06-11 15:40] LABS: C-Reactive Protein Quant 13.1 mg/dL (<1.0)
[2024-06-11 15:42] LABS: Procalcitonin < 0.030 ng/mL (<0.5)
[2024-06-11] MEDS: ONDANSETRON 4 MG/2 ML INJ IV (16:00)
[2024-06-11] MEDS: VANCOMYCIN 1,000 MG/200 ML PIGGYBACK 200 MG IV (16:20)
[2024-06-11 16:35] LABS: Erythrocyte Sedimentation Rate 80 MM/HR (0-20)
[2024-06-11 18:21] LABS: COVID19 -Nasal RAPID Negative (Negative)
== END 2024-06-11 20:07 | disposition short-term general hospital (02) ==
PROVIDERS: Emergency Provider Emergency Medicine; Family Provider Physician Assistant Medical; PCP Physician Assistant Medical
DX: M46.40 Discitis, unspecified, site unspecified (principal); M86.9 Osteomyelitis, unspecified; A18.01 Tuberculosis of spine; R50.9 Fever, unspecified
CPT/HCPCS: 36415; 80053; 81003; 83605; 84145; 84703; 85025; 85651; 86140; 87040; 87635; 96365; 96367; 96375; 96376; 99284; 99285; J0696; J2405; J3010

== ENCOUNTER → 2024-07-31 08:06 | Outpatient (CLI) | payer OTHER, SELFPAY ==
--- NOTE | 2024-07-31 | DI.CT.S_ITS ---
PROCEDURE: CT THORACIC SPINE WO CON INDICATIONS: Spondylolisthesis / Osteomyelitis,lumbar region robo spine TECHNIQUE: Noncontrast 3 mm thick sections acquired through the region of interest in the thoracic spine. Sagittal and coronal reformats were then constructed. For radiation dose reduction, the following was used: automated exposure control. COMPARISON: None. FINDINGS: Image quality: Excellent. Bones: There is normal overall bony alignment. Diffuse osteopenia. No acute vertebral body compression fractures. No suspicious sclerotic or lytic bony lesions. Central spinal canal is of normal overall caliber. No canal stenosis or foraminal stenosis. Soft tissues: No paravertebral masses or hematomas. Visualized posteromedial lungs appear clear. Bilateral mammoplasties IMPRESSION: Diffuse osteopenia. Unremarkable thoracic spine CT. Comment: Consider DEXA bone densitometry for further evaluation of the degree of bone mineralization. Dictated by: Cristhian Cuello M.D. on 07/31/2024 at 12:20 Approved by: Cristhian Cuello M.D. on 07/31/2024 at 12:23
--- NOTE | 2024-07-31 08:09 | DI.CT.S_ITS ---
PROCEDURE: CT LUMBAR SPINE WO CON INDICATIONS: Spondylolisthesis / Osteomyelitis,lumbar region robo spine TECHNIQUE: Noncontrast 3 mm thick sections acquired from the T12 level to the sacrum. Sagittal and coronal reformats were constructed. For radiation dose reduction, the following was used: automated exposure control. COMPARISON: [facility], CR, XR LUMBAR SPINE 6V W BENDING, 06/26/2023, 13:05. [facility], MR, MR LUMBAR SPINE WO/W CON, 06/04/2024, 10:54. FINDINGS: Image quality: Excellent. Bones: Remote posterior lateral everardo and pedicle screw fixation and posterior decompression and interbody spacer placement at L5-S1. The left screws at L5 and S1 on both have diffuse lucency surrounding them. Additionally, there is a lucent tract present from the left L5 screw through the anterior aspect of the L5 vertebral body. Since the previous MRI, a lucent area of L5 has developed just to the left of midline in the relative center of the vertebral body measuring 10 mm. This is consistent with a focal vertebral body abscess. Sclerotic changes are developing in L5 and S1 vertebral bodies. Findings are consistent with osteomyelitis found on the previous MRI. Soft tissues: Visualized aorta is normal in caliber. There is thickening of the prevertebral tissues at L5-S1 consistent with associated soft tissue phlegmon. There may potentially be an early abscess present to the right of midline anterior to S1 on axial image 76 of series 9. IMPRESSION: Findings suggest progression of process seen on the recent previous MRI. The left pedicle screws at L5-S1 now have diffuse lucency surrounding them. Interval development of a probable L5 focal abscess. Presence of a tract from the left L5 screw anteriorly. Question of subtle abscess in the musculature anterior to S1. Comments: Consider nonemergent lumbar CT with contrast. Consider nonemergent repeat lumbar spine MRI with and without contrast. Dictated by: Cristhian Cuello M.D. on 07/31/2024 at 12:23 Approved by: Cristhian Cuello M.D. on 07/31/2024 at 12:31
== END ==
PROVIDERS: Family Provider Physician Assistant Medical; PCP Physician Assistant Medical; Referring Provider Neurological Surgery; Visit Provider Neurological Surgery
DX: M46.26 Osteomyelitis of vertebra, lumbar region (principal); M43.16 Spondylolisthesis, lumbar region; Z98.1 Arthrodesis status
CPT/HCPCS: 72128; 72131